=== PATIENT | female | born 1940 | race Caucasian/White ===

== ENCOUNTER 2019-12-06 13:08 | Emergency (ER) | payer MEDICARE, SELFPAY ==
[2019-12-06 13:14] VITALS: BP 189/102; PULSE 74; RESP 16; TEMP 36.9; O2SAT 94; BMI 32.2
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
[2019-12-06] MEDS: fentaNYL 100 MCG/2 ML Ampul 50 MCG IM (13:53)
[2019-12-06] MEDS: Ondansetron ODT 4 MG Tablet PO (13:53)
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
[2019-12-06 15:58] VITALS: BP 176/81; PULSE 68; RESP 16; O2SAT 97
== END 2019-12-06 16:00 | disposition home or self-care (01) ==
PROVIDERS: Emergency Provider Emergency Medicine; PCP Internal Medicine
DX: S20.219A Contusion of unspecified front wall of thorax, initial encounter (principal); V89.2XXA Person injured in unspecified motor-vehicle accident, traffic, initial encounter; Y93.9 Activity, unspecified; Y92.9 Unspecified place or not applicable; R51 Headache; J98.4 Other disorders of lung
CPT/HCPCS: 70450; 71046; 96372; 99284

== ENCOUNTER 2021-07-30 16:04 | Emergency (ER) | payer MEDICARE, SELFPAY ==
[2021-07-30 16:06] VITALS: BP 190/70; PULSE 59; RESP 16; TEMP 36.7; O2SAT 98; BMI 30.2
[2021-07-30 16:35] LABS: Basophil# 0.02 X10^3/uL; Basophil% 0.4 % (0-1); Eosinophil# 0.27 X10^3/uL; Hemoglobin 10.3 g/dL (12.0-15.0); Lymphocyte % 29.6 % (19-41); Mean Corp Hgb Conc 31.2 g/dL (32-36); Mean Corpuscular Hgb 28.1 pg (27.0-32.0); Mean Corpuscular Volume 90.2 fL (81-99); Mean Platelet Vol. 8.9 fl (6.2-12.0); Monocyte# 0.46 X10^3/uL; Monocyte% 8.5 % (0-10); NRBC Flagged by Analyzer 0 % (0-5); Neutrophil # 3.03 X10^3/uL (2.7-7.7); Neutrophil % 56.1 % (47-70); Platelet Count 260 K/mm3 (150-450); RBC Distribution Width CV 17.2 % (11.6-14.6); RBC Distribution Width SD 56.9 fl (35.1-43.9); Red Blood Count 3.66 M/mm3 (4.2-5.4); White Blood Count 5.4 K/mm3 (4.4-11.0)
[2021-07-30 16:48] LABS: ALB/GLOB Ratio 0.8 RATIO (0.9-2.4); AST(SGOT) 22 U/L (15-37); Alanine Aminotransfer ALT/SGPT 24 U/L (13-56); Albumin, Serum 3.6 g/dL (3.2-5.0); Alkaline Phosphatase 57 U/L (45-117); Anion Gap 8 (5-15); BUN 17 mg/dL (7-18); BUN/Creat Ratio 13.6 RATIO (10-20); Calcium,Total 9.4 mg/dL (8.5-10.1); Chloride 111 mmol/L (98-107); Creatinine, Serum 1.25 mg/dL (0.55-1.02); EST Glomerular Filtration Rate 44 mL/min (>60); Est Glom Filt Rate - Afr Amer 53 mL/min (>60); Globulin 4.6 g/dL (2.2-4.2); Glucose 108 mg/dL (74-106); Potassium 4.1 mmol/L (3.5-5.1); Protein, Total 8.2 g/dL (6.4-8.2); Sodium Level 143 mmol/L (136-145)
--- NOTE | 2021-07-30 18:00 | RAD_ITS ---
STUDY: X-RAY CHEST REASON FOR EXAM: Female, 81 years old. asthma TECHNIQUE: AP portable COMPARISON: 12/06/2019. FINDINGS: There is mild interstitial thickening in both lower lobes.. There is no demonstrated pleural abnormality. Normal size heart. Normal mediastinum and cassandra. Normal visualized pulmonary arteries. Mildly calcified aortic arch and descending thoracic aorta. Dorsal spine demonstrates degenerative change. Normal visualized ribs, clavicles, and shoulders. There is no demonstrated abnormality of the visualized soft tissue structures of the upper abdomen. No significant change since prior exam RAD/Chest 1 View IMPRESSION: Mild chronic interstitial changes. No acute cardiopulmonary pathology Electronically Signed: Vinicio Atkinson MD at 18:31 EDT , Service support ,
[2021-07-30 18:39] VITALS: O2SAT 98
--- NOTE | 2021-07-30 18:43 | CT_ITS ---
STUDY: CT BRAIN WITHOUT CONTRAST REASON FOR EXAM: Female, 81 years old. vertigo RADIATION DOSAGE (If Supplied By Facility): CTDIvol = ( 44.99 ) mGy, DLP = ( 779.24 ) mGycm TECHNIQUE: Transaxial CT imaging of the brain was performed without administration of intravenous contrast material. Individualized dose optimization techniques were used for this CT. COMPARISON: 12/06/2019. FINDINGS: Normal soft tissue structures. Normal calvarium. Calcific plaquing of the cavernous carotids bilaterally and the right vertebral artery. Mild atrophy and moderate periventricular white matter ischemic changes.. Normal basal ganglia and thalami. Normal brainstem. Normal cerebellum. There is no intracranial hemorrhage. There are no findings of an acute ischemic infarction. Postsurgical changes of the orbits. Complex expansile mucosal lesion in the right maxillary sinus of uncertain etiology but stable since previous study.. CT/Brain/Head without Contrast IMPRESSION: Atrophy and moderate periventricular white matter ischemic changes. No evidence for acute bleed. If concern for acute infarct MRI recommended. Electronically Signed: Vinicio Atkinson MD at 19:26 EDT , Service support ,
[2021-07-30 18:45] VITALS: BP 197/69; PULSE 60; RESP 15; O2SAT 99
--- NOTE | 2021-07-30 18:51 | EDS_ITS ---
HPI History of Present Illness Chief Complaint: Asthma Narrative Narrative: Chief complaints as asthma. Patient has no dyspnea or asthma. Her complaint is dizziness. She was at her doctor's office, she was laying down and had a sense of spinning of the room associated with nausea, it was quite intense and lasted about half an hour. No vision changes, she does not feel off balance currently, she has no headache she has no fever or chills, she has no weakness or paresthesias. [facility] Medical History (Updated 07/30/21 @ 20:[address] Toribio Wadsworth MD) Asthma Hypertension Home Medications Omeprazole [Prilosec] 40 mg PO DAILY 04/22/14 [History Last Taken 06/13/14] Pyridoxine Hcl [Vitamin B-6] 100 mg PO BID 04/22/14 [History Last Taken 06/13/14] ascorbic acid (vitamin C) [Vitamin C] 1,000 mg PO DAILY@0800 04/22/14 [History Last Taken Unknown] azelastine 2 spray NASAL BID 04/22/14 [History Last Taken 05/21/14] budesonide-formoterol [Symbicort] 2 puff INHALATION BID 04/22/14 [History Last Taken 06/11/14] cyanocobalamin (vitamin B-12) 1,000 mcg PO DAILY 04/22/14 [History Last Taken 06/13/14] cyclobenzaprine 10 mg PO QHS PRN PRN 04/22/14 [History Last Taken 06/13/14] folic acid 0.8 mg PO BIDCM 04/22/14 [History Last Taken 06/13/14] hydrocortisone 1 applic TOPICAL BID PRN 04/22/14 [History Last Taken Unknown] levalbuterol HCl [Xopenex Concentrate] 1.25 mg IH Q4H PRN PRN 04/22/14 [History Last Taken Unknown] levothyroxine 50 mcg PO DAILY 04/22/14 [History Last Taken 06/13/14] lorazepam 0.5 mg PO BID PRN 04/22/14 [History Last Taken 06/13/14] metformin 500 mg PO BIDCM 04/22/14 [History Last Taken 06/13/14] montelukast 10 mg PO QHS 04/22/14 [History Last Taken 06/13/14] simvastatin [Zocor] 5 mg PO QHS 04/22/14 [History Last Taken 06/12/14] travoprost [Travatan Z] 1 drp EACH EYE QHS 04/22/14 [History Last Taken 06/12/14] zolpidem 5 mg PO QHS PRN PRN 04/22/14 [History Last Taken 06/12/14] benzonatate 100 mg PO TID PRN PRN 06/14/14 [History Last Taken 05/21/14] ipratropium bromide 0.25 mg INHALATION TID PRN 06/14/14 [History Last Taken 06/12/14] levalbuterol tartrate [Xopenex HFA] 2 puff INHALATION Q4H PRN 06/14/14 [History Last Taken 06/07/14] iron, carbonyl [Feosol] 45 mg PO DAILYCM #30 capsule 06/15/14 [Rx Last Taken Unknown] duloxetine 60 mg PO DAILY 07/30/21 [History Last Taken Unknown] meclizine 25 mg PO BID #10 tab 07/30/21 [Rx Last Taken Unknown] meloxicam 15 mg PO DAILY 07/30/21 [History Last Taken Unknown] Allergy/AdvReac Type Severity Reaction Status Date / Time bacitracin Allergy Rash Verified 12/06/19 13:19 [From Neosporin ([id number])] bacitracin zinc Allergy Rash Verified 12/06/19 13:19 [From Neosporin ([id number])] diclofenac [Diclofenac] Allergy Unknown Verified 12/06/19 13:19 dicyclomine Allergy Unknown Verified 12/06/19 13:19 gabapentin Allergy Unknown Verified 12/06/19 13:19 hyoscyamine sulfate Allergy Unknown Verified 12/06/19 13:19 [From Levbid] metronidazole [From Flagyl] Allergy Unknown Verified 12/06/19 13:19 neomycin sulfate Allergy Rash Verified 12/06/19 13:19 [From Neosporin ([id number])] oxaprozin [From Daypro] Allergy Itching Verified 12/06/19 13:19 polymyxin B Allergy Rash Verified 12/06/19 13:19 [From Neosporin ([id number])] polymyxin B sulfate Allergy Rash Verified 12/06/19 13:19 [From Polysporin] propoxyphene HCl Allergy Unknown Verified 12/06/19 13:19 [From Darvon] atorvastatin calcium AdvReac muscle Verified 12/06/19 13:19 [From Lipitor] aches shellfish derived AdvReac vomitting Verified 12/06/19 13:19 Social History Smoking Status: Never smoker ROS ROS ED ROS Narrative Past medical history: Reviewed, includes type 2 diabetes, hyperlipidemia, hypothyroidism, asthma Medications: Reviewed Social history: Noncontributory Review of systems: All systems negative except as indicated General: No fever Eyes: No visual changes ENT: No upper airway congestion, normal voice Neck: No neck pain Cardiovascular: No chest pain Respiratory: No shortness of breath or cough Gastrointestinal: No abdominal pain, nausea vomiting or diarrhea Genitourinary: No dysuria Musculoskeletal: Denies myalgias no difficulty with ambulation Skin: No rash Neurological: Vertigo as in HPI. No memory loss, confusion or any focal weakness. No paresthesias Psych: No recent behavioral changes Hematologic: No easy bleeding or easy bruising EXAM Physical Exam Narrative Exam Narrative: Physical exam General: Well nourished, Well developed, No Acute Distress. She is quite comfortable in bed Head: Normocephalic, Atraumatic Eyes: Conjunctiva not pale. No nystagmus ENT: Moist mucous membranes Neck: Supple, Nontender, No lymphadenopathy Cardiovascular: Regular rate, Regular rhythm Respiratory: No distress, CTA bilaterally Abdomen: Soft, Nontender, Nondistended Back: Nontender, Normal Inspection. Negative for: CVA tenderness Extremities: Nontender, No edema Skin: Normal color, No rash Neurological: Alert, Normal Strength, Normal Sensation. She has normal cerebellar and normal Romberg. Normal gait. She has rightward saccade on exam. Psychological: Normal affect Const Vital Signs: 07/30/21 16:06 07/30/21 18:39 07/30/21 18:45 Temperature 98.1 F Temperature Source Oral Pulse Rate 59 L 60 Respiratory Rate 16 15 Respiratory Effort Normal Non-Labored Respiratory Depth Normal Respiratory Pattern Normal Blood Pressure 190/70 H 197/69 H Blood Pressure Mean 110 111 Pulse Ox 98 99 Oxygen Delivery Method Room Air Room Air Room Air MDM MDM MDM Narrative Medical decision making narrative: Patient has a normal ED work-up, her signs and symptoms point towards a peripheral vertigo. I will discharge her with follow-up from ENT and [facility]. Lab Data Labs: Laboratory Results - last 24 hr 07/30/21 07/30/21 16:25 16:25 WBC 5.4 RBC 3.66 L Hgb 10.3 L Hct 33.0 L MCV 90.2 MCH 28.1 MCHC 31.2 L RDW Std Deviation 56.9 H RDW Coeff of Naina 17.2 H Plt Count 260 MPV 8.9 Immature Gran % (Auto) 0.400 Neut % (Auto) 56.1 Lymph % (Auto) 29.6 [place] % (Auto) 8.5 Eos % (Auto) 5.0 Baso % (Auto) 0.4 Absolute Neuts (auto) 3.0 Absolute Lymphs (auto) 1.60 Nucleated RBC % 0 Sodium 143 Potassium 4.1 Chloride 111 H Carbon Dioxide 24.0 Anion Gap 8 BUN 17 Creatinine 1.25 H Estim Creat Clear Calc 39.20 Est GFR (MDRD) Af Amer 53 L Est GFR (MDRD) Non-Af 44 L BUN/Creatinine Ratio 13.6 Glucose 108 H Calcium 9.4 Total Bilirubin 0.30 AST 22 ALT 24 Alkaline Phosphatase 57 Total Protein 8.2 Albumin 3.6 Globulin 4.6 H Albumin/Globulin Ratio 0.8 L Radiography Diagnostic Testing: Radiology Impression Chest X-Ray 07/30/21 18:00 IMPRESSION: Mild chronic interstitial changes. No acute cardiopulmonary pathology Electronically Signed: Vinicio Atkinson MD at 18:31 EDT , Service support , Brain CT 07/30/21 18:43 IMPRESSION: Atrophy and moderate periventricular white matter ischemic changes. No evidence for acute bleed. If concern for acute infarct MRI recommended. Electronically Signed: Vinicio Atkinson MD at 19:26 EDT , Service support , Discharge Plan Triage Chief Complaint: Asthma ED Provider: Toribio Wadsworth Dx/Rx/DC Orders Clinical Impression: Vertigo Instructions: ED Vertigo, Unspecified Prescriptions: New meclizine 25 mg tablet 25 mg PO BID Qty: 10 RF: 0 No Action lorazepam 0.5 MG tablet 0.5 mg PO BID PRN (Reason: Anxiety) RF: 0 cyclobenzaprine 10 MG tablet 10 mg PO QHS PRN PRN (Reason: Muscle Spasm) RF: 0 metformin 500 MG tablet 500 mg PO BIDCM RF: 0 travoprost [Travatan Z] 1 DROP bottle 1 drp Each Eye QHS RF: 0 ascorbic acid (vitamin C) [Vitamin C] 500 MG tablet 1,000 mg PO DAILY@0800 RF: 0 simvastatin [Zocor] 5 MG tablet 5 mg PO QHS RF: 0 levothyroxine 50 MCG tablet 50 mcg PO DAILY RF: 0 cyanocobalamin (vitamin B-12) 1,000 MCG/ML solution 1,000 mcg PO DAILY RF: 0 hydrocortisone 1 APPLIC cream 1 applic topical BID PRN (Reason: Itching) RF: 0 montelukast 10 MG tablet 10 mg PO QHS RF: 0 zolpidem 5 MG tablet 5 mg PO QHS PRN PRN (Reason: Sleep) RF: 0 azelastine 1 SPRAY aerosol,spray 2 spray NASAL BID RF: 0 folic acid 0.8 MG tablet 0.8 mg PO BIDCM RF: 0 levalbuterol HCl [Xopenex Concentrate] 1.25 MG/0.5 ML solution for nebulization 1.25 mg IH Q4H PRN PRN (Reason: Shortness Of Breath) RF: 0 budesonide-formoterol [Symbicort] 1 INHALER inhaler 2 puff inhalation BID RF: 0 Omeprazole [Prilosec] 40 MG capsule 40 mg PO DAILY RF: 0 Pyridoxine Hcl [Vitamin B-6] 100 MG tablet 100 mg PO BID RF: 0 benzonatate 100 MG capsule 100 mg PO TID PRN PRN (Reason: Cough) RF: 0 ipratropium bromide 0.5 MG/2.5 ML solution 0.25 mg inhalation TID PRN (Reason: Wheezing) RF: 0 levalbuterol tartrate [Xopenex HFA] 15 GM HFA aerosol inhaler 2 puff inhalation Q4H PRN (Reason: Shortness Of Breath) RF: 0 iron, carbonyl [Feosol] 45 MG capsule 45 mg PO DAILYCM Qty: 30 RF: 3 meloxicam 15 mg tablet 15 mg PO DAILY RF: 0 duloxetine 60 mg capsule,delayed release(DR/EC) 60 mg PO DAILY RF: 0 Primary Care Provider: Michael Hobson Referrals: Darwin Altman MD [STAFF PHYSICIAN] - 2 Days Michael Hobson MD [Primary Care Provider] -
[2021-07-30 20:26] VITALS: BP 168/75; PULSE 67; RESP 18; O2SAT 97
== END 2021-07-30 20:27 | disposition home or self-care (01) ==
PROVIDERS: Emergency Provider Emergency Medicine; PCP Internal Medicine
DX: R42 Dizziness and giddiness (principal); I10 Essential (primary) hypertension; E03.9 Hypothyroidism, unspecified; E11.9 Type 2 diabetes mellitus without complications; E78.5 Hyperlipidemia, unspecified; J45.909 Unspecified asthma, uncomplicated; Z79.84 Long term (current) use of oral hypoglycemic drugs; Z79.899 Other long term (current) drug therapy
CPT/HCPCS: 70450; 71045; 80053; 85025; 99285; A4216

== ENCOUNTER → 2021-09-19 14:02 | Outpatient (CLI) | payer MEDICARE, SELFPAY ==
--- NOTE | 2021-09-19 14:24 | VDLE_ITS ---
Reason For Study: EDEMA RIGHT LEFT GSV is normal. GSV is normal. CFV is compressible, spontaneous, phasic, CFV is compressible, spontaneous, phasic, competent and demonstrates normal competent, and demonstrates normal augmentation. augmentation. FV is compressible, spontaneous, phasic, FV is compressible, spontaneous, phasic, competent and demonstrates normal competent and demonstrates normal augmentation. augmentation. POP V is compressible, spontaneous, phasic, POP V is compressible, spontaneous, phasic, competent and demonstrates normal competent and demonstrates normal augmentation. augmentation. T/P Trunk is compressible. T/P Trunk is compressible. RT PerV is compressible. PTV is compressible. PTV is dilated and noncompressible with mixed LT PerV is compressible. echolucency C/W acute on chronic DVT. Procedure Exam performed in department. A preliminary report was called and/or faxed to Dr. Sofia's RN @ [phone] @ 3 pm. VL/Venous Duplex US - Jez Extrem Interpretation Summary Acute and chronic deep vein thrombosis are noted in the right posterior tibial vein. The remainder of the right lower extremity deep venous system is patent and compressible. Patsy p veins of the left lower extremity are patent and compressible segmentally. There is no evidence o f left lower extremity deep vein thrombosis. Valvular competence appears intact within the p roximal deep venous systems bilaterally. The great saphenous veins appear bilaterally patent and co mpressible segmentally. Ordering Physician: Jose Sofia Referring Physician: Jose Sofia Performed By: Fidelina Monsalve, CAMMIE, RVT
== END ==
PROVIDERS: PCP Internal Medicine; Referring Provider Family Medicine; Visit Provider Family Medicine
DX: R60.0 Localized edema (principal)
CPT/HCPCS: 93970

== ENCOUNTER 2021-10-22 13:13 | Inpatient (IN) | payer MEDICARE, SELFPAY ==
[2021-10-22] VITALS (11 sets, daily range): BP systolic 107–147; BP diastolic 37–60; PULSE 50–61; RESP 12–18; TEMP 36–37.3; O2SAT 94–100; BMI 29.0; BMI 30.3
--- NOTE | 2021-10-22 14:02 | EKG12_ITS ---
Test Reason : ABN LABS Blood Pressure : / mmHG Vent. Rate : 055 BPM Atrial Rate : 055 BPM P-R Int : 150 ms QRS Dur : 088 ms QT Int : 408 ms P-R-T Axes : 033 026 079 degrees QTc Int : 390 ms Sinus bradycardia Nonspecific ST abnormality Abnormal ECG Confirmed by STEVEN MARX, MARILU ([id number]), book or script editor MADELIN FROST ([id number]) on 10/24/2021 1:26:13 PM Referred By: YONATAN Confirmed By:MARILU HARRIS MD
[2021-10-22 14:13] LABS: Absolute Neutrophil Count 5.5 X10^3/uL (2.0-7.7); Basophil# 0.02 X10^3/uL; Basophil% 0.3 % (0-1); Eosinophil# 0.09 X10^3/uL; Eosinophils% 1.2 % (0-5); Hematocrit 23.5 % (37-47); Hemoglobin 7.1 g/dL (12.0-15.0); Lymphocyte % 20.7 % (19-41); Mean Corp Hgb Conc 30.2 g/dL (32-36); Mean Corpuscular Hgb 26.6 pg (27.0-32.0); Mean Platelet Vol. 9.4 fl (6.2-12.0); Monocyte# 0.46 X10^3/uL; Monocyte% 5.9 % (0-10); NRBC Flagged by Analyzer 0 % (0-5); Neutrophil # 5.54 X10^3/uL (2.7-7.7); Neutrophil % 71.5 % (47-70); Platelet Count 350 K/mm3 (150-450); RBC Distribution Width SD 54.3 fl (35.1-43.9); Red Blood Count 2.67 M/mm3 (4.2-5.4); White Blood Count 7.7 K/mm3 (4.4-11.0)
[2021-10-22 14:23] LABS: Anion Gap 10 (5-15); BUN 44 mg/dL (7-18); BUN/Creat Ratio 27.3 RATIO (10-20); Calcium,Total 10.1 mg/dL (8.5-10.1); Chloride 111 mmol/L (98-107); Creatinine, Serum 1.61 mg/dL (0.55-1.02); EST Glomerular Filtration Rate 33 mL/min (>60); Est Glom Filt Rate - Afr Amer 40 mL/min (>60); Estimated Creatinine Clearance 29.22 ml/min; Glucose 123 mg/dL (74-106); Sodium Level 144 mmol/L (136-145)
--- NOTE | 2021-10-22 14:26 | EX.ED.DYSGE1 ---
HPI History of Present Illness Chief Complaint: Abn Labs Detail of Chief Complaint: Black stool, Hemoccult positive stool and 2 g drop in hemoglobin Informant: patient and family Onset/Context/Timing Onset: - (Blood work on Wednesday revealed a greater than 2 g drop in hemoglobin compared to 2 weeks ago.) Context: - (Unknown) Timing: - (Unknown) Quality: GI bleed on Eliquis Location: GI bleed, history of gastric ulcer Current Severity: Mild Maximum Severity: Mild Worsened by: Anticoagulant and patient is taken ibuprofen/Aleve in the past 1 to 2 weeks Relieved by: Nothing Associated Symptoms Associated Symptoms: Dyspnea on exertion and lightheadedness Narrative Narrative: Patient is 81-year-old woman with history of type 2 diabetes, hyperlipidemia, hypothyroidism, asthma, gastric/duodenal ulcer who presents because of 2 g drop in her hemoglobin over the past 2 weeks. She went to see her physician on Wednesday. Hemoccult was positive for blood. And hemogram revealed a 2 g drop. She states she took her dose of Eliquis this morning. She denies headache, runny nose that is new, congestion or postnasal drainage. Denies sore throat. She denies neck pain. She denies chest pain, dyspnea at rest. She does have dyspnea on exertion. She states she has a chronic cough due to her asthma. The cough is nonproductive. She denies abdominal pain. She denies nausea, vomiting diarrhea. She states she has black-colored stool. She has not taken Pepto-Bismol or Kaopectate in the last 1 to 2 weeks. Family member commented that she appears paler than normal. She denies bleeding of her gums. She denies blood in her urine. She denies bruising easily. She denies history of diverticulosis or diverticulitis. Prior similar symptoms: Yes Recent Illness/Hospitalization: No PFSH PFSH Medical History Anxiety Arthritis Asthma COPD (chronic obstructive pulmonary disease) Diabetes DVT (deep venous thrombosis) Former smoker Hypertension Skin cancer Home Medications azelastine 2 spray NASAL BID 04/22/14 [History Last Taken 05/21/14] budesonide-formoterol [Symbicort] 2 puff INHALATION BID 04/22/14 [History Last Taken 10/19/21] hydrocortisone 1 applic TOPICAL BID PRN 04/22/14 [History Last Taken Unknown] levalbuterol HCl [Xopenex Concentrate] 1.25 mg IH Q4H PRN PRN 04/22/14 [History Last Taken 1 Week Ago ~10/15/21] levothyroxine 50 mcg PO DAILY 04/22/14 [History Last Taken 10/22/21] lorazepam 0.5 mg PO BID PRN 04/22/14 [History Last Taken 10/22/21] metformin 500 mg PO BIDCM 04/22/14 [History Last Taken 10/22/21] montelukast 10 mg PO QHS 04/22/14 [History Last Taken 06/13/14] omeprazole 40 mg PO DAILY #0 capsule 04/22/14 [History Last Taken 10/22/21] travoprost [Travatan Z] 1 drp EACH EYE QHS 04/22/14 [History Last Taken 10/20/21] benzonatate 100 mg PO TID PRN PRN 06/14/14 [History Last Taken 05/21/14] ipratropium bromide 0.25 mg INHALATION TID PRN 06/14/14 [History Last Taken 1 Week Ago ~10/15/21] levalbuterol tartrate [Xopenex HFA] 2 puff INHALATION Q4H PRN 06/14/14 [History Last Taken 10/21/21] duloxetine 60 mg PO DAILY 07/30/21 [History Last Taken 10/22/21] meloxicam 15 mg PO DAILY 07/30/21 [History Last Taken 10/22/21] apixaban [Eliquis DVT-PE Treat 30D Start] 5 mg PO DAILY 10/22/21 [History Last Taken 10/22/21] pravastatin 20 mg PO QHS 10/22/21 [History Last Taken 10/21/21] trazodone 100 mg PO QHS 10/22/21 [History Last Taken 10/21/21] Allergy/AdvReac Type Severity Reaction Status Date / Time bacitracin Allergy Rash Verified 10/22/21 13:14 [From Neosporin ([id number])] bacitracin zinc Allergy Rash Verified 10/22/21 13:14 [From Neosporin ([id number])] diclofenac [Diclofenac] Allergy Unknown Verified 10/22/21 13:14 dicyclomine Allergy Unknown Verified 10/22/21 13:14 gabapentin Allergy Unknown Verified 10/22/21 13:14 hyoscyamine sulfate Allergy Unknown Verified 10/22/21 13:14 [From Levbid] metronidazole [From Flagyl] Allergy Unknown Verified 10/22/21 13:14 neomycin sulfate Allergy Rash Verified 10/22/21 13:14 [From Neosporin ([id number])] oxaprozin [From Daypro] Allergy Itching Verified 10/22/21 13:14 polymyxin B Allergy Rash Verified 10/22/21 13:14 [From Neosporin ([id number])] polymyxin B sulfate Allergy Rash Verified 10/22/21 13:14 [From Polysporin] propoxyphene HCl Allergy Unknown Verified 10/22/21 13:14 [From Darvon] atorvastatin calcium AdvReac muscle Verified 10/22/21 13:14 [From Lipitor] aches shellfish derived AdvReac vomitting Verified 10/22/21 13:14 Surgical History H/O: hysterectomy Social History (Updated 10/22/21 @ 14:[address] Nitin Page MD) household members: none Smoking Status: Former smoker substance use type: does not use ROS ROS ED Constitutional Constitutional ED: Denies chills, fever(s), subjective, sweats or weight loss Eyes Eyes: Denies blurry vision, change in vision or diplopia ENT ENT ED: Denies ear pain, rhinorrhea or sore throat Cardiovascular Cardiovascular: Denies chest pain, orthopnea, palpitations, paroxysmal nocturnal dyspnea or racing heartbeat Respiratory/Chest Respiratory/Chest: Reports cough and dyspnea on exertion; Denies dyspnea, orthopnea, paroxysmal nocturnal dyspnea or sputum Gastrointestinal Gastrointestinal: Reports melena; Denies abdominal pain, diarrhea, nausea or vomiting Genitourinary Genitourinary ED: Denies dysuria, hematuria or urinary frequency Musculoskeletal Musculoskeletal: Denies arthralgias, myalgias or neck pain Integumentary Denies Abrasions or rash Neurologic Neurologic: Denies headache(s) or weakness Endocrine Endocrinology: Denies polydipsia, polyphagia or polyuria Hematologic/Lymphatic Hematologic/Lymphatic: Reports anemia; Denies easy bleeding or easy bruising EXAM Physical Exam Const Vital Signs: 10/22/21 13:15 10/22/21 13:36 10/22/21 15:13 Temperature 96.8 F L Temperature Source Temporal Pulse Rate 59 L 57 L Respiratory Rate 16 16 12 Respiratory Effort Non-Labored Short of Breath Respiratory Pattern Normal Blood Pressure 122/39 H 117/46 L Blood Pressure Mean 66 69 Pulse Ox 94 96 Oxygen Delivery Method Room Air Room Air 10/22/21 17:00 Temperature Temperature Source Pulse Rate 58 L Respiratory Rate 18 Respiratory Effort Respiratory Pattern Blood Pressure 118/52 L Blood Pressure Mean 74 Pulse Ox 98 Oxygen Delivery Method Room Air Positive well nourished and well developed General Appearance ED: well developed, NAD, pallor and other Appears pale. There is no erythema creases of her palm. This would just hemoglobin less than 6. ; Negative for cyanotic or diaphoretic HEENT Reports TM's clear and moist mucous membranes; Denies dry mucous membranes Negative for trauma or tenderness Tympanic Membrane ED: Yes TM's clear Mouth ED: No dry mucous membranes Mouth: No dry mucous membranes Eyes PERRL and EOMs intact bilaterally General Eye ED: Yes pale conjunctiva; Negative for scleral icterus Neck no lymphadenopathy, supple and no JVD Chest Wall inspection of chest normal and palpation of chest normal Resp normal respiratory effort and clear to auscultation bilaterally Cardio regular rate and no murmurs; Negative for regular rhythm Rhythm: abnormal rhythm GI normal to inspection, nondistended, normoactive bowel sounds, non-tender and non-distended GI Narrative: Stool is very dark. It is not melanotic. Palpation: soft Back/Spine no CVA tenderness Cervical Spine: Negative for cervical spine tenderness Thoracic Spine / Upper Back: Negative for thoracic spinal tenderness or paraspinal muscle tenderness Extremity normal to inspection General Extremety ED: Negative for edema or tenderness General Extremity: Negative for edema Neuro oriented x3, CN's II-XII intact bilaterally and no sensory deficits noted Sensorium / Orientation: alert Psych mental status grossly normal Skin no rashes or lesions noted and no wounds General Skin Exam: pallor; Negative for jaundice MDM MDM MDM Narrative Medical decision making narrative: Patient on anticoagulant with heme positive stool a significant drop in hemoglobin. She was typed and screened appropriate blood work was ordered. She was made NPO. We will discuss case with hospitalist and job compositor once labs have returned. Patient is not tachycardic. Lab Data Attestation: I reviewed the patient's lab results. Lab results narrative: ALT is positive.Hemoglobin is 7.1. BUN to creatinine ratio is elevated at 27-1 which would suggest an acute GI bleed. Labs: Laboratory Results - last 24 hr 10/22/21 10/22/21 10/22/21 13:03 13:03 14:25 WBC 7.7 RBC 2.67 L Hgb 7.1 L Hct 23.5 L MCV 88.0 MCH 26.6 L MCHC 30.2 L RDW Std Deviation 54.3 H RDW Coeff of Naina 17.0 H Plt Count 350 MPV 9.4 Immature Gran % (Auto) 0.400 Neut % (Auto) 71.5 H Lymph % (Auto) 20.7 [place] % (Auto) 5.9 Eos % (Auto) 1.2 Baso % (Auto) 0.3 Absolute Neuts (auto) 5.5 Absolute Lymphs (auto) 1.60 Nucleated RBC % 0 Sodium 144 Potassium 5.0 Chloride 111 H Carbon Dioxide 23.0 Anion Gap 10 BUN 44 H Creatinine 1.61 H Estim Creat Clear Calc 29.22 Est GFR (MDRD) Af Amer 40 L Est GFR (MDRD) Non-Af 33 L BUN/Creatinine Ratio 27.3 H Glucose 123 H Calcium 10.1 Blood Type A POSITIVE Antibody Screen NEGATIVE EKG Initial EKG: Attestation: I personally reviewed and interpreted this EKG as follows: Interpretation: Sinus Bradycardia (Sinus bradycardia with a ventricular rate of 55. IL interval 250 ms. QS duration 88 ms. QT duration 408 ms. [place] is normal. Computer is reading ossific changes which in my opinion is due to artifact in lead III.) Discharge Plan Dx/Rx/DC Orders Clinical Impression: Acute GI bleeding, Type II diabetes mellitus, History of duodenal ulcer, Anticoagulant long-term use, Bradycardia, sinus, Anemia due to acute blood loss Disposition Disposition: [facility]
--- NOTE | 2021-10-22 17:35 | NURSING ---
DR BECK FOR DR HILLS
--- NOTE | 2021-10-22 17:52 | NURSING ---
101 OBS KIRAN GI BLEED, ANEMIA DUE TO BLOOD LOSS
--- NOTE | 2021-10-22 18:00 | HP.PCM.HOS_ITS ---
[facility] - General General Date of Admission: 10/22/21 HPI Narrative MARIA D SUTTON, is a 81 F who presents to the hospital with acute anemia. She was recently diagnosed with a right DVT in early September and was started on Eliquis by her PCP. For the last 2 weeks has been noticing dark stools, no gray blood. Initially he was just watching it as an outpatient but then on Wednesday when she was talking about having further episodes of dark stools and feeling tired and fatigued, he obtained a CBC and a stool specimen. It appears that she had continue to take her Eliquis throughout this entire episode as well as NSAIDs for arthritis until today when it was noticed that her hemoglobin had dropped from 10 which is around her baseline down to 7.5 on Wednesday. She was called by her PCP and told to present to the hospital. In the ER her hemoglobin was found to be 71. She is little bit tired but is not significantly short of breath lightheaded or dizzy. FOR[facility], LAT[facility] Medical History Anxiety Arthritis Asthma COPD (chronic obstructive pulmonary disease) Diabetes DVT (deep venous thrombosis) Former smoker Hypertension Skin cancer Home Medications azelastine 2 spray NASAL BID 04/22/14 [History Last Taken 05/21/14] budesonide-formoterol [Symbicort] 2 puff INHALATION BID 04/22/14 [History Last Taken 10/19/21] hydrocortisone 1 applic TOPICAL BID PRN 04/22/14 [History Last Taken Unknown] levalbuterol HCl [Xopenex Concentrate] 1.25 mg IH Q4H PRN PRN 04/22/14 [History Last Taken 1 Week Ago ~10/15/21] levothyroxine 50 mcg PO DAILY 04/22/14 [History Last Taken 10/22/21] lorazepam 0.5 mg PO BID PRN 04/22/14 [History Last Taken 10/22/21] metformin 500 mg PO BIDCM 04/22/14 [History Last Taken 10/22/21] montelukast 10 mg PO QHS 04/22/14 [History Last Taken 06/13/14] omeprazole 40 mg PO DAILY #0 capsule 04/22/14 [History Last Taken 10/22/21] travoprost [Travatan Z] 1 drp EACH EYE QHS 04/22/14 [History Last Taken 10/20/21] benzonatate 100 mg PO TID PRN PRN 06/14/14 [History Last Taken 05/21/14] ipratropium bromide 0.25 mg INHALATION TID PRN 06/14/14 [History Last Taken 1 Week Ago ~10/15/21] levalbuterol tartrate [Xopenex HFA] 2 puff INHALATION Q4H PRN 06/14/14 [History Last Taken 10/21/21] duloxetine 60 mg PO DAILY 07/30/21 [History Last Taken 10/22/21] meloxicam 15 mg PO DAILY 07/30/21 [History Last Taken 10/22/21] apixaban [Eliquis DVT-PE Treat 30D Start] 5 mg PO DAILY 10/22/21 [History Last Taken 10/22/21] pravastatin 20 mg PO QHS 10/22/21 [History Last Taken 10/21/21] trazodone 100 mg PO QHS 10/22/21 [History Last Taken 10/21/21] Allergy/AdvReac Type Severity Reaction Status Date / Time bacitracin Allergy Rash Verified 10/22/21 13:14 [From Neosporin ([id number])] bacitracin zinc Allergy Rash Verified 10/22/21 13:14 [From Neosporin ([id number])] diclofenac [Diclofenac] Allergy Unknown Verified 10/22/21 13:14 dicyclomine Allergy Unknown Verified 10/22/21 13:14 gabapentin Allergy Unknown Verified 10/22/21 13:14 hyoscyamine sulfate Allergy Unknown Verified 10/22/21 13:14 [From Levbid] metronidazole [From Flagyl] Allergy Unknown Verified 10/22/21 13:14 neomycin sulfate Allergy Rash Verified 10/22/21 13:14 [From Neosporin ([id number])] oxaprozin [From Daypro] Allergy Itching Verified 10/22/21 13:14 polymyxin B Allergy Rash Verified 10/22/21 13:14 [From Neosporin ([id number])] polymyxin B sulfate Allergy Rash Verified 10/22/21 13:14 [From Polysporin] propoxyphene HCl Allergy Unknown Verified 10/22/21 13:14 [From Darvon] atorvastatin calcium AdvReac muscle Verified 10/22/21 13:14 [From Lipitor] aches shellfish derived AdvReac vomitting Verified 10/22/21 13:14 Family History (Updated 10/22/21 @ 18:[address] Julio Lau MD) Other Colon cancer Hypertension Surgical History H/O: hysterectomy Social History (Updated 10/22/21 @ 14:[address] Nitin Page MD) household members: none Smoking Status: Former smoker substance use type: does not use ROS Constitutional Constitutional: Reports fatigue; Denies chills, fever(s) or malaise Eyes Eyes: Denies blurry vision ENT HEENT: Denies headache(s) or nasal discharge Cardiovascular Cardiovascular: Denies chest pain, dyspnea on exertion or syncope Respiratory/Chest Respiratory/Chest: Denies cough, shortness of breath at rest or shortness of breath with exertion Gastrointestinal Gastrointestinal: Reports melena; Denies constipation, diarrhea, nausea or vomiting Genitourinary Genitourinary: Denies dysuria Neurologic Neurologic: Denies focal weakness, numbness or tremor(s) Psychiatric Psychiatric: Denies anxiety or depression Vital Signs Vital Signs Vital Signs: 10/22/21 13:15 10/22/21 13:36 10/22/21 15:13 Temperature 96.8 F L Temperature Source Temporal Pulse Rate 59 L 57 L Respiratory Rate 16 16 12 Respiratory Effort Non-Labored Short of Breath Respiratory Pattern Normal Blood Pressure 122/39 H 117/46 L Blood Pressure Mean 66 69 Pulse Ox 94 96 Oxygen Delivery Method Room Air Room Air 10/22/21 17:00 Temperature Temperature Source Pulse Rate 58 L Respiratory Rate 18 Respiratory Effort Respiratory Pattern Blood Pressure 118/52 L Blood Pressure Mean 74 Pulse Ox 98 Oxygen Delivery Method Room Air Weight Weight: 144 lb Body Mass Index (BMI) 29.0 Physical Exam Const alert, oriented x3 and no apparent distress General Appearance: cooperative HEENT normocephalic and moist oral mucous membranes Eyes PERRL, EOMs intact bilaterally and conjunctivae normal Neck supple and no JVD Resp normal respiratory effort, no retractions, no use of accessory muscles and clear to auscultation bilaterally Auscultation: Negative for crackles, rales, rhonchi or wheezes Cardio regular rate, regular rhythm, S1 normal heart sound, S2 normal heart sound and no murmurs GI soft to palpation, non-tender and non-distended; Negative for hepatosplenomegaly Extremity no clubbing, cyanosis or edema Skin no rashes or lesions noted General Skin Exam: pallor Neuro no focal motor deficits and no sensory deficits noted Psych affect normal Appearance: appropriate Results Lab / Micro Data Result Diagrams: 10/22/21 13:03 10/22/21 13:03 Labs: Laboratory Results - last 24 hr 10/22/21 13:03: WBC 7.7, RBC 2.67 L, Hgb 7.1 L, Hct 23.5 L, MCV 88.0, MCH 26.6 L , MCHC 30.2 L, RDW Std Deviation 54.3 H, RDW Coeff of Naina 17.0 H, Plt Count 350, MPV 9.4, Immature Gran % (Auto) 0.400, Neut % (Auto) 71.5 H, Lymph % (Auto) 20.7, [place] % (Auto) 5.9, Eos % (Auto) 1.2, Baso % (Auto) 0.3, Absolute Neuts (auto) 5.5, Absolute Lymphs (auto) 1.60, Nucleated RBC % 0 10/22/21 13:03: Sodium 144, Potassium 5.0, Chloride 111 H, Carbon Dioxide 23.0, Anion Gap 10, BUN 44 H, Creatinine 1.61 H, Estim Creat Clear Calc 29.22, Est GFR (MDRD) Af Amer 40 L, Est GFR (MDRD) Non-Af 33 L, BUN/Creatinine Ratio 27.3 H, Glucose 123 H, Calcium 10.1 10/22/21 14:25: Blood Type A POSITIVE, Antibody Screen NEGATIVE Micro: Microbiology 10/22/21 16:08 Stool Stool Occult Blood (JULY) - Final Occult Blood Positive Assessment & Plan Assessment/Plan (1) Acute blood loss anemia: (2) Acute GI bleeding: PLAN: 1. Acute blood loss anemia secondary to acute GI bleed/DVT in 09/2021/GERD ?She does have a history of an upper GI bleed unfortunately has to be on Eliquis for a right DVT ?Baseline hemoglobin is around 10 she is currently 7.1 ?We will consult gastroenterology for evaluation and discontinue her Eliquis and her NSAIDs ?I did educate her on not using her NSAIDs and she will likely need to be evaluated for the ability to continue Eliquis versus potentially having a filter installed for her DVT. I would recommend outpatient hematology follow-up as well to see if the source of the clot can be determined ?Continue with twice daily PPI ?We will start her on clear liquid diet ?We will transfuse 1unit and recheck hemoglobin 2. Asthma/COPD from secondhand smoking ?Continue with her home inhalers ?No current exacerbation 3. Depression and anxiety ?Stable ?Continue and Ativan as needed 4. Hypothyroidism ?Stable ?Continue with 5. DM2 ?Hold metformin ?We will place on sliding scale insulin Accu-Cheks AC at bedtime 6. HLD ?Stable ?Continue with statin DVT: SCDs Charges/Coding Visit Charges Inpatient E&M: 70393 Init Hosp L3
--- NOTE | 2021-10-22 19:47 | PCS.PANDOC ---
PANDEMIC DOCUMENTATION INITIATED: Date: 06/30/2021 Time: 190
[2021-10-22] MEDS: Montelukast 10 MG Tablet PO (22:53)
[2021-10-22] MEDS: Pravastatin 20 MG Tablet PO (22:54)
[2021-10-22] MEDS: Latanoprost 0.005% 1 Bottle 1 DRP EACH EYE (22:54)
[2021-10-22] MEDS: MELATONIN 3 MG TABLET PO (22:59)
[2021-10-23] VITALS (12 sets, daily range): BP systolic 106–140; BP diastolic 37–92; PULSE 47–69; RESP 16–24; TEMP 36.4–37.1; O2SAT 92–100
[2021-10-23 05:30] LABS: Absolute Lymphocyte Count 1.54 X10^3/uL (0.83-4.51); Absolute Neutrophil Count 3.4 X10^3/uL (2.0-7.7); Basophil# 0.02 X10^3/uL; Basophil% 0.3 % (0-1); Eosinophil# 0.31 X10^3/uL; Eosinophils% 5.3 % (0-5); Hemoglobin 8.2 g/dL (12.0-15.0); Lymphocyte # 1.54 X10^3/ul (0.83-4.51); Lymphocyte % 26.5 % (19-41); Mean Corp Hgb Conc 31.5 g/dL (32-36); Mean Corpuscular Volume 88.7 fL (81-99); Mean Platelet Vol. 9.1 fl (6.2-12.0); Monocyte# 0.55 X10^3/uL; Monocyte% 9.5 % (0-10); NRBC Flagged by Analyzer 0 % (0-5); Neutrophil # 3.38 X10^3/uL (2.7-7.7); Neutrophil % 58.2 % (47-70); Platelet Count 259 K/mm3 (150-450); RBC Distribution Width CV 16.1 % (11.6-14.6); RBC Distribution Width SD 51.8 fl (35.1-43.9); Red Blood Count 2.93 M/mm3 (4.2-5.4); White Blood Count 5.8 K/mm3 (4.4-11.0)
[2021-10-23] MEDS: Levothyroxine 50 MCG Tablet PO (05:45)
[2021-10-23 06:19] LABS: Anion Gap 5 (5-15); BUN 38 mg/dL (7-18); BUN/Creat Ratio 27.9 RATIO (10-20); Calcium,Total 9.2 mg/dL (8.5-10.1); Chloride 115 mmol/L (98-107); Creatinine, Serum 1.36 mg/dL (0.55-1.02); EST Glomerular Filtration Rate 40 mL/min (>60); Est Glom Filt Rate - Afr Amer 48 mL/min (>60); Estimated Creatinine Clearance 36.11 ml/min; Glucose 108 mg/dL (74-106); Potassium 5.5 mmol/L (3.5-5.1); Sodium Level 141 mmol/L (136-145)
[2021-10-23] MEDS: DULoxetine Hcl 60 MG Capsule PO (08:35)
--- NOTE | 2021-10-23 10:45 | CASEMGMT ---
THANG MCGREGOR assessment: Face to Face with patient for initial transition planning/care coordination assessment. THANG MCGREGOR introduced self and role at [facility], pt voices understanding and consents to assessment. Pt is sitting up in chair in no distress on room air. Pt is A/Ox4 and answers all questions appropriately. Care providers, pharmacy, and demographics verified. Presentation: Pt sent in for low hemoglobin Admitting dx: GI bleed, anemia d/t blood loss PCP: Joce Specialists: damien Longoria Preferred Pharmacy: [facility] Insurance: [employer] [employer] Prescription Benefit: [employer] Living Will/HPOA: Pt does not have LW/HPOA but would like AD info and info provided at this time. LNOK: Eyad Magdaleno, son; Fidelina Magdaleno, [id number] Living Arrangements: Pt lives alone in mobile home with 5 steps in and states no concerns at home. Pt is independent with ADL's. Transportation: Pt states drives self and states no transportation concerns. DME/HHC: Pt has the following DME: cane(uses), w/c, walker, and tub bench. Pt states no need for any further DME. Pt states no hx of HHC or SNF. Pt states no concerns with going home at time of discharge. Pt is retired. Pt states does not smoke cigarettes or drink ETOH. Pt states no further concerns/needs. CM to follow for any further discharge planning/needs. Advised pt to ask for CM if any further questions/concerns/needs arise, voices understanding. Pt Goal: Home Plan: [place] THANG MCGREGOR
--- NOTE | 2021-10-23 15:40 | PN.HOSP_ITS ---
Subjective Subjective Follow-up on acute GI bleed: Patient seen and examined. Patient went EGD that showed esophageal varices, portal hypertensive gastropathy and gastritis Objective Data Objective Data Vital Signs: Vital Signs Temp Pulse Resp BP Pulse Ox 98.7 F 50 L 16 120/58 L 100 10/23/21 14:25 10/23/21 14:25 10/23/21 14:25 10/23/21 14:25 10/23/21 14:25 Oxygen Delivery Method Room Air Weight: 68.2 kg Body Mass Index (BMI) 30.3 Intake & Output: Intake and Output for Last 24 Hours 10/21/21 10/22/21 10/23/21 23:59 23:59 23:59 Intake Total 880 / 880 800 / 800 Balance 880 / 880 800 / 800 Lab / Micro Data Result Diagrams: 10/23/21 04:52 10/23/21 04:52 Labs: Laboratory Results - last 24 hr 10/22/21 14:25: Crossmatch See Detail 10/23/21 04:52: WBC 5.8, RBC 2.93 L, Hgb 8.2 L, Hct 26.0 L, MCV 88.7, MCH 28.0, MCHC 31.5 L, RDW Std Deviation 51.8 H, RDW Coeff of Naina 16.1 H, Plt Count 259, MPV 9.1, Immature Gran % (Auto) 0.200, Neut % (Auto) 58.2, Lymph % (Auto) 26.5, [place] % (Auto) 9.5, Eos % (Auto) 5.3 H, Baso % (Auto) 0.3, Absolute Neuts (auto) 3.4, Absolute Lymphs (auto) 1.54, Nucleated RBC % 0 10/23/21 04:52: Sodium 141, Potassium 5.5 H, Chloride 115 H, Carbon Dioxide 21.0, Anion Gap 5, BUN 38 H, Creatinine 1.36 H, Estim Creat Clear Calc 36.11, Est GFR (MDRD) Af Amer 48 L, Est GFR (MDRD) Non-Af 40 L, BUN/Creatinine Ratio 27.9 H, Glucose 108 H, Calcium 9.2 Micro: Microbiology 10/22/21 16:08 Stool Stool Occult Blood (JULY) - Final Occult Blood Positive Physical Exam Narrative Physical exam: General: Alert, Oriented x3, Cooperative, No apparent distress, Well developed HEENT: Atraumatic Oral: Moist Mucosa Neck: Supple Lungs: Clear to auscultation Cardiovascular: HS I+II, regular, no murmurs Abdomen: Bowel Sounds Present, Soft, Non Tender Extremities: No edema Assessment & Plan Assessment/Plan (1) GI bleed: (2) Type II diabetes mellitus: (3) Hyperlipidemia: (4) Acute blood loss anemia: (5) Acute GI bleeding: PLAN: 1. Acute blood loss anemia secondary to acute GI bleed History of Acute DVT in 09/2021 GI consulted; status post EGD that showed gastritis, portal hypertension, esophageal varices Continue on IV PPI 2. Type II DM, blood sugars stable, hold Metformin, continue with insulin sliding scale 3. Rest of her chronic medical conditions include anxiety/depression/hypothyroidism/hyperlipidemia remained stable Charges/Coding Visit Charges Inpatient E&M: 61740 Subs Hosp L2
--- NOTE | 2021-10-23 16:57 | OP.CCLET_ITS ---
07/22/2022 Michael Hobson [address] [place] [address] Re : Upper GI endoscopy procedure for Pattie Magdaleno Dear Dr. Hobson This procedure was performed on October. My impressions and recommendations are as follows: Impressions : - Grade I esophageal varices. - Portal hypertensive gastropathy. - Gastritis. - Normal third portion of the duodenum. - No specimens collected. Recommendations : - Use Protonix (pantoprazole) 40 mg PO BID for 8 weeks. - Resume regular diet today. - Return to my office in 2 weeks. - No aspirin, ibuprofen, naproxen, or other non-steroidal anti-inflammatory drugs for 4 days. -Ultrasound of the liver regarding possible cirrhosis My findings are described in the full procedure note, which is enclosed. If I can be of further assistance, please feel free to contact me at . Sincerely, Sinan Friend, 10/23/2021 4:56:33 PM This report has been signed electronically.
--- NOTE | 2021-10-23 16:57 | OP.EGD_ITS ---
Patient Name: Pattie Magdaleno Procedure Date: 10/23/2021 4:24 PM Date of : 1940 Age: 81 Procedure: Upper GI endoscopy Indications: Acute post hemorrhagic anemia Providers: Sinan Arellano DO Patient Profile: This is a 81 year old female. Refer to note in patient chart for documentation of history and physical. Patient has symptoms. Complications: No immediate complications. Procedure: Pre-Anesthesia Assessment: - Prior to the procedure, a History and Physical was performed, and patient medications and allergies were reviewed. The patient is competent. The risks and benefits of the procedure and the sedation options and risks were discussed with the patient. All questions were answered and informed consent was obtained. Patient identification and proposed procedure were verified by the physician in the pre-procedure area. Mental Status Examination: alert and oriented. Airway Examination: normal oropharyngeal airway and neck mobility. Respiratory Examination: clear to auscultation. CV Examination: normal. Prophylactic Antibiotics: The patient does not require prophylactic antibiotics. Prior Anticoagulants: The patient has taken no previous anticoagulant or antiplatelet agents. ASA Grade Assessment: II - A patient with mild systemic disease. After reviewing the risks and benefits, the patient was deemed in satisfactory condition to undergo the procedure. The anesthesia plan was to use moderate sedation / analgesia (conscious sedation). Immediately prior to administration of medications, the patient was re-assessed for adequacy to receive sedatives. The heart rate, respiratory rate, oxygen saturations, blood pressure, adequacy of pulmonary ventilation, and response to care were monitored throughout the procedure. The physical status of the patient was re-assessed after the procedure. After obtaining informed consent, the endoscope was passed under direct vision. Throughout the procedure, the patient's blood pressure, pulse, and oxygen saturations were monitored continuously. The gastroscope was introduced through the mouth, and advanced to the second part of duodenum. The upper GI endoscopy was accomplished without difficulty. The patient tolerated the procedure well. Moderate Sedation: Moderate (conscious) sedation was personally administered by an anesthesia professional. The following parameters were monitored: oxygen saturation, heart rate, blood pressure, and response to care. Total physician intraservice time was 15 minutes. Scope In: 4:41:29 PM Scope Out: 4:47:05 PM Total Procedure Duration Time 0 hours 5 minutes 36 seconds Findings: Grade I varices were found at the gastroesophageal junction. They were 5 mm in largest diameter. Also esophageal ring was seen in the mid to proximal esophagus. This was not dilated. Mild portal hypertensive gastropathy was found in the cardia. There was also a large sliding hiatal hernia seen. There was the presence of small telangiectasias that were seen in the hiatal hernia and throughout the stomach. Localized mild inflammation characterized by congestion (edema) and erythema was found in the prepyloric region of the stomach. The third portion of the duodenum was normal. Impression: - Grade I esophageal varices. - Portal hypertensive gastropathy. - Gastritis. - Normal third portion of the duodenum. - No specimens collected. Recommendation: - Use Protonix (pantoprazole) 40 mg PO BID for 8 weeks. - Resume regular diet today. - Return to my office in 2 weeks. - No aspirin, ibuprofen, naproxen, or other non-steroidal anti-inflammatory drugs for 4 days. -Ultrasound of the liver regarding possible cirrhosis Procedure Code(s): --- Professional --- 75050, Esophagogastroduodenoscopy, flexible, transoral; diagnostic, including collection of specimen(s) by brushing or washing, when performed (separate procedure) CPT copyright 2017 [employer]. All rights reserved. The codes documented in this report are preliminary and upon lending consultant review may be revised to meet current compliance requirements. Sinan Arellano DO 10/23/2021 4:56:33 PM This report has been signed electronically. Number of Addenda: 1 Note Initiated On: 10/23/2021 4:24 PM Addendum Number: 1 Addendum Date: 07/22/2022 7:06:13 AM MAC was used instead of moderate sedation for the patient. Sinan Arellano DO 07/22/2022 7:06:17 AM This report has been signed electronically.
--- NOTE | 2021-10-23 17:44 | US_ITS ---
STUDY: ABDOMINAL ULTRASOUND - RIGHT UPPER QUADRANT REASON FOR VISIT: Female, 81 years old. ABDOMEN PAIN cirrhosis, portal hypertension, DOPPLERS STUDY TECHNIQUE: Ultrasound evaluation of the right upper quadrant was performed with real-time and static pendleton-scale imaging. TECHNICAL QUALITY: Adequate. COMPARISON: None. FINDINGS: Liver: There is a heterogeneous echogenicity of the liver. The bile ducts are within normal limits. There is hepatic color flow. The direction of portal flow is hepatopetal. The liver is nodular in appearance. A focal mass is not identified. The finding is consistent for hepatic cirrhosis. Gallbladder: Normal distended gallbladder. The gallbladder wall measures 3 mm. There is a negative sonographic Daugherty''s sign. There is no pericholecystic fluid. There are no gallstones. Common Bile Duct (C.B.D.): The common bile duct measures ( in mm): 3 Pancreas: Normal size of the head, body of the pancreas. There is normal echogenicity of the pancreas. There is no demonstrated pancreatic mass or cyst. Right Kidney: Normal size of the right kidney. The right kidney measures 10.4 cm. . Normal renal cortex. Cyst measures 11 mm. There is no right hydronephrosis. Aorta: It is not visualized. There is too much overlying bowel gas. . US/Liver IMPRESSION: Hepatic cirrhosis. Simple cyst of the right kidney. No follow-up required. Electronically Signed: Chuck Walker MD at 21:13 EST , Service support ,
[2021-10-23] MEDS: Polyethylene Glycol 3350 BOWEL PREP PO (20:52)
[2021-10-23] MEDS: Bisacodyl 5 MG Tablet 20 MG PO (21:00)
[2021-10-23] MEDS: Montelukast 10 MG Tablet PO (21:04)
[2021-10-23] MEDS: Pravastatin 20 MG Tablet PO (21:04)
[2021-10-23] MEDS: Latanoprost 0.005% 1 Bottle 1 DRP EACH EYE (21:08)
[2021-10-23] MEDS: Albuterol 2.5 MG/3 ML VIAL.NEB. INHALATION (21:30)
[2021-10-23] MEDS: LORazepam 0.5 MG Tablet PO (22:00)
[2021-10-23 22:21] LABS: Bedside Glucose 130 mg/dL (70-110)
[2021-10-24] VITALS (8 sets, daily range): BP systolic 118–146; BP diastolic 46–64; PULSE 50–55; RESP 16–20; TEMP 36.4–37.3; O2SAT 95–100; BMI 30.3
[2021-10-24 05:07] LABS: Absolute Lymphocyte Count 1.98 X10^3/uL (0.83-4.51); Absolute Neutrophil Count 3.8 X10^3/uL (2.0-7.7); Basophil# 0.03 X10^3/uL; Basophil% 0.5 % (0-1); Eosinophil# 0.27 X10^3/uL; Eosinophils% 4.1 % (0-5); Lymphocyte # 1.98 X10^3/ul (0.83-4.51); Lymphocyte % 29.9 % (19-41); Mean Corpuscular Hgb 27.9 pg (27.0-32.0); Mean Corpuscular Volume 89.8 fL (81-99); Mean Platelet Vol. 8.6 fl (6.2-12.0); Monocyte# 0.53 X10^3/uL; NRBC Flagged by Analyzer 0 % (0-5); Neutrophil % 57.2 % (47-70); Platelet Count 302 K/mm3 (150-450); RBC Distribution Width CV 16.2 % (11.6-14.6); RBC Distribution Width SD 53.1 fl (35.1-43.9); Red Blood Count 3.23 M/mm3 (4.2-5.4); White Blood Count 6.6 K/mm3 (4.4-11.0)
[2021-10-24 05:21] LABS: International Normalized Ratio 1.1; Prothrombin Time (Protime)PT. 13.8 SECONDS (11.7-14.9)
[2021-10-24 05:22] LABS: Partial Thromboplast Time 31.4 Seconds (24.1-36.2)
--- NOTE | 2021-10-24 05:55 | EKG12_ITS ---
Test Reason : AM EKG Blood Pressure : / mmHG Vent. Rate : 053 BPM Atrial Rate : 053 BPM P-R Int : 152 ms QRS Dur : 094 ms QT Int : 430 ms P-R-T Axes : 062 034 071 degrees QTc Int : 403 ms Sinus bradycardia Otherwise normal ECG When compared with ECG of 22-OCT-2021 14:23, MANUAL COMPARISON REQUIRED, DATA IS UNCONFIRMED Confirmed by JORGE A MARX, NOAH ([id number]), script editor MADELIN FROST ([id number]) on 10/24/2021 11:46:13 AM Referred By: Confirmed By:NOAH JULES MD
[2021-10-24 05:58] LABS: ALB/GLOB Ratio 0.7 RATIO (0.9-2.4); AST(SGOT) 15 U/L (15-37); Alanine Aminotransfer ALT/SGPT 15 U/L (13-56); Albumin, Serum 2.9 g/dL (3.2-5.0); Alkaline Phosphatase 50 U/L (45-117); Anion Gap 6 (5-15); BUN 23 mg/dL (7-18); BUN/Creat Ratio 17.4 RATIO (10-20); Calcium,Total 9.2 mg/dL (8.5-10.1); Chloride 108 mmol/L (98-107); Creatinine, Serum 1.32 mg/dL (0.55-1.02); EST Glomerular Filtration Rate 41 mL/min (>60); Est Glom Filt Rate - Afr Amer 50 mL/min (>60); Estimated Creatinine Clearance 37.21 ml/min; Globulin 4.2 g/dL (2.2-4.2); Glucose 107 mg/dL (74-106); Magnesium 1.8 mg/dL (1.6-2.6); Phosphorus 3.9 mg/dL (2.5-4.9); Potassium 4.9 mmol/L (3.5-5.1); Protein, Total 7.1 g/dL (6.4-8.2); Sodium Level 139 mmol/L (136-145); Thyroid Stim Hormone (TSH) 3.85 uIU/mL (0.358-3.74)
[2021-10-24 06:50] LABS: Bedside Glucose 106 mg/dL (70-110)
[2021-10-24 07:02] LABS: Hemoglobin A1c 5.7 % (3.8-5.6)
[2021-10-24 11:55] LABS: Bedside Glucose 109 mg/dL (70-110)
--- NOTE | 2021-10-24 15:55 | SUR.PREOP ---
attempted to call daughter in law to give her an update- no answer at this time
[2021-10-24 16:45] LABS: Bedside Glucose 96 mg/dL (70-110)
--- NOTE | 2021-10-24 18:50 | OP.COLON_ITS ---
Patient Name: Pattie Magdaleno Procedure Date: 10/24/2021 5:43 PM Date of : 1940 Age: 81 Procedure: Colonoscopy Indications: Acute post hemorrhagic anemia, Iron deficiency anemia Providers: Sinan Arellano DO Medicines: See the Anesthesia note for documentation of the administered medications Patient Profile: This is a 81 year old female. Refer to note in patient chart for documentation of history and physical. Last Colonoscopy: date unknown. Complications: No immediate complications. Procedure: Pre-Anesthesia Assessment: - Prior to the procedure, a History and Physical was performed, and patient medications and allergies were reviewed. The patient is competent. The risks and benefits of the procedure and the sedation options and risks were discussed with the patient. All questions were answered and informed consent was obtained. Patient identification and proposed procedure were verified by the physician in the pre-procedure area. Mental Status Examination: alert and oriented. Airway Examination: normal oropharyngeal airway and neck mobility. Respiratory Examination: clear to auscultation. CV Examination: normal. Prophylactic Antibiotics: The patient does not require prophylactic antibiotics. Prior Anticoagulants: The patient has taken no previous anticoagulant or antiplatelet agents. After reviewing the risks and benefits, the patient was deemed in satisfactory condition to undergo the procedure. The anesthesia plan was to use moderate sedation / analgesia (conscious sedation). Immediately prior to administration of medications, the patient was re-assessed for adequacy to receive sedatives. The heart rate, respiratory rate, oxygen saturations, blood pressure, adequacy of pulmonary ventilation, and response to care were monitored throughout the procedure. The physical status of the patient was re-assessed after the procedure. After I obtained informed consent, the scope was passed under direct vision. Throughout the procedure, the patient's blood pressure, pulse, and oxygen saturations were monitored continuously. The Colonoscope was introduced through the anus and advanced to the cecum, identified by appendiceal orifice and ileocecal valve. The colonoscopy was performed without difficulty. The patient tolerated the procedure well. The quality of the bowel preparation was unsatisfactory. Moderate Sedation: Moderate (conscious) sedation was administered by the endoscopy nurse and supervised by the endoscopist. The following parameters were monitored: oxygen saturation, heart rate, blood pressure, and response to care. Total physician intraservice time was 15 minutes. Scope In: 6:16:50 PM Scope Withdrawal Time 0 hours 13 minutes 46 seconds Scope Out: 6:38:06 PM Total Procedure Duration Time 0 hours 21 minutes 16 seconds Findings: The perianal and digital rectal examinations were normal. Multiple large-mouthed diverticula were found in the recto-sigmoid colon, sigmoid colon, descending colon, splenic flexure and transverse colon. There was narrowing of the colon in association with the diverticular opening. Erythema was seen in association with the diverticular opening. Makayla-diverticular erythema was seen. There was evidence of an impacted diverticulum. There was no evidence of diverticular bleeding. A large amount of semi-liquid semi-solid solid stool was found in the rectum, in the recto-sigmoid colon, in the sigmoid colon, in the descending colon, at the splenic flexure, in the transverse colon, in the ascending colon and in the cecum, making visualization difficult. A 5 mm polyp was found in the sigmoid colon. The polyp was sessile. The polyp was removed with a hot snare. Resection and retrieval were complete. Verification of patient identification for the specimen was done. To prevent bleeding post-intervention, two hemostatic clips were successfully placed. There was no bleeding at the end of the procedure. Impression: - Preparation of the colon was unsatisfactory. - Severe diverticulosis in the recto-sigmoid colon, in the sigmoid colon, in the descending colon, at the splenic flexure and in the transverse colon. There was narrowing of the colon in association with the diverticular opening. Erythema was seen in association with the diverticular opening. Makayla-diverticular erythema was seen. There was evidence of an impacted diverticulum. There was no evidence of diverticular bleeding. - Stool in the rectum, in the recto-sigmoid colon, in the sigmoid colon, in the descending colon, at the splenic flexure, in the transverse colon, in the ascending colon and in the cecum. - One 5 mm polyp in the sigmoid colon, removed with a hot snare. Resected and retrieved. Clips were placed. Recommendation: - Repeat colonoscopy in 3 months because the bowel preparation was suboptimal. - Return to GI office in 2 weeks. - Continue present medications. Procedure Code(s): --- Professional --- 49782, Colonoscopy, flexible; with removal of tumor(s), polyp(s), or other lesion(s) by snare technique [id number], Moderate sedation services provided by the same physician or other qualified health manager career performing a gastrointestinal endoscopic service that sedation supports, requiring the presence of an independent trained observer to assist in the monitoring of the patient's level of consciousness and physiological status; initial 15 minutes of intra-service time; patient age 5 years or older (additional time may be reported with 83458, as appropriate) CPT copyright 2017 [employer]. All rights reserved. The codes documented in this report are preliminary and upon address change clerk review may be revised to meet current compliance requirements. Sinan Arellano DO 10/24/2021 6:49:58 PM This report has been signed electronically. Number of Addenda: 1 Note Initiated On: 10/24/2021 5:43 PM Addendum Number: 1 Addendum Date: 07/22/2022 7:06:45 AM MAC was used instead of moderate sedation for the patient. Sinan Arellano DO 07/22/2022 7:06:50 AM This report has been signed electronically.
--- NOTE | 2021-10-24 18:51 | OP.CCLET_ITS ---
07/22/2022 Michael Hobson [address] [place] [address] Re : Colonoscopy procedure for Pattie Magdaleno Dear Dr. Hobson This procedure was performed on Sunday, October 24, 2021. My impressions and recommendations are as follows: Impressions : - Preparation of the colon was unsatisfactory. - Severe diverticulosis in the recto-sigmoid colon, in the sigmoid colon, in the descending colon, at the splenic flexure and in the transverse colon. There was narrowing of the colon in association with the diverticular opening. Erythema was seen in association with the diverticular opening. Makayla-diverticular erythema was seen. There was evidence of an impacted diverticulum. There was no evidence of diverticular bleeding. - Stool in the rectum, in the recto-sigmoid colon, in the sigmoid colon, in the descending colon, at the splenic flexure, in the transverse colon, in the ascending colon and in the cecum. - One 5 mm polyp in the sigmoid colon, removed with a hot snare. Resected and retrieved. Clips were placed. Recommendations : - Repeat colonoscopy in 3 months because the bowel preparation was suboptimal. - Return to GI office in 2 weeks. - Continue present medications. My findings are described in the full procedure note, which is enclosed. If I can be of further assistance, please feel free to contact me at . Sincerely, Sinan Arellano, 10/24/2021 6:49:58 PM This report has been signed electronically.
[2021-10-24] MEDS: Montelukast 10 MG Tablet PO (20:51)
[2021-10-24] MEDS: Pravastatin 20 MG Tablet PO (20:51)
[2021-10-24] MEDS: Latanoprost 0.005% 1 Bottle 1 DRP EACH EYE (20:51)
[2021-10-24] MEDS: rifAXIMin 550 MG Tablet PO (20:53)
[2021-10-24 21:00] LABS: Bedside Glucose 89 mg/dL (70-110)
[2021-10-25 00:06] VITALS: BP 126/56; PULSE 58; RESP 14; TEMP 37.1; O2SAT 98
[2021-10-25] MEDS: Levothyroxine 50 MCG Tablet PO (06:44)
[2021-10-25] MEDS: 0.9% Saline Lock 10 ML Syringe IV ×2 (06:45→09:26)
[2021-10-25 06:46] VITALS: BP 147/58; PULSE 55; RESP 16; TEMP 36.9; O2SAT 98
[2021-10-25 06:55] LABS: Bedside Glucose 104 mg/dL (70-110)
--- NOTE | 2021-10-25 07:39 | PN.HOSP_ITS ---
Subjective Subjective Late entry note:Patient seen on Follow-up on acute GI bleed: Patient seen and examined. Patient went EGD on 10/23/21 that showed esophageal varices, portal hypertensive gastropathy and gastritis. Colonoscopy on 10/24/21 was a poor prep and showed severe diverticulosis in the rectosigmoid, colon, descending colon/splenic flexure and transverse colon. One 5 mm polyp in the sigmoid colon was removed with a hot snare. Resected, retrieved, clips placed. Repeat colonoscopy planned for 3-month Liver ultrasound showed hepatic cirrhosis, simple cyst of the right kidney. Objective Data Objective Data Vital Signs: Vital Signs Temp Pulse Resp BP Pulse Ox 98.4 F 55 L 16 147/58 H 98 10/25/21 06:46 10/25/21 06:46 10/25/21 06:46 10/25/21 06:46 10/25/21 06:46 Oxygen Flow Rate (L/min) 2 Oxygen Delivery Method Room Air Weight: 68.2 kg Body Mass Index (BMI) 30.3 Intake & Output: Intake and Output for Last 24 Hours 10/23/21 10/24/21 10/25/21 23:59 23:59 23:59 Intake Total 910 / 2910 3320 / 3320 Balance 910 / 2910 3320 / 3320 Lab / Micro Data Result Diagrams: 10/24/21 05:00 10/24/21 05:00 Labs: Laboratory Results - last 24 hr 10/24/21 11:51: POC Glucose 109 10/24/21 16:43: POC Glucose 96 10/24/21 19:24: Ammonia 12.0 10/24/21 20:49: POC Glucose 89 10/25/21 06:43: POC Glucose 104 Micro: Microbiology 10/22/21 16:08 Stool Stool Occult Blood (JULY) - Final Occult Blood Positive Physical Exam Narrative Physical exam: General: Alert, Oriented x3, Cooperative, No apparent distress, Well developed HEENT: Atraumatic Oral: Moist Mucosa Neck: Supple Lungs: Clear to auscultation Cardiovascular: HS I+II, regular, no murmurs Abdomen: Bowel Sounds Present, Soft, Non Tender Extremities: No edema Assessment & Plan Assessment/Plan (1) GI bleed: QUALIFIERS: GI bleed type/associated pathology: unspecified gastrointestinal hemorrhage type Qualified Code(s): K92.2 - Gastrointestinal hemorrhage, unspecified (2) Type II diabetes mellitus: QUALIFIERS: Diabetes mellitus complication status: with other specified complication Diabetes mellitus retirement insulin use: without ferry terminal supervisor use Qualified Code(s): E11.69 - Type 2 diabetes mellitus with other specified complication (3) Hyperlipidemia: QUALIFIERS: Hyperlipidemia type: unspecified Qualified Code(s): E78.5 - Hyperlipidemia, unspecified (4) Acute blood loss anemia: (5) Acute GI bleeding: PLAN: 1. Acute blood loss anemia secondary to acute GI bleed - gastritis History of Acute DVT in 09/2021 GI following; status post EGD that showed gastritis, portal hypertension, esophageal varices Colonoscopy showed severe diverticulosis, polyp was removed Continue on IV PPI 2. Cirrhosis, seen on ultrasound of the liver, ammonia was 12 Started on lactulose and rifaximin 3. Type II DM, blood sugars stable, hold Metformin, continue with insulin sliding scale 4. Rest of her chronic medical conditions include anxiety/depression/hypothyroidism/hyperlipidemia remained stable Charges/Coding Visit Charges Inpatient E&M: 19939 Subs Hosp L2
[2021-10-25 09:08] VITALS: BP 145/50; PULSE 54; RESP 16; TEMP 36.7; O2SAT 99
--- NOTE | 2021-10-25 09:24 | PCM.DC ---
Discharge Instructions Diet Discharge Diet: 1800 Calorie Control Diet, 2000 Calorie Control Diet and 2000 mg Sodium Diet Activity Discharge Activity: Return to Normal Activity Follow Up Care Test Results: Test results from this visit will be discussed in further detail at your follow-up appointment, if applicable. Discharge Plan Admission Admit Date/Time: 10/22/21 17:56 Primary Reason for Your Visit: Acute GI bleed Attending Provider: Ingrid Shelby Primary Care Provider: Michael Hobson Discharge Orders/Prescriptions Prescriptions: New Xifaxan 550 mg Tablet 550 mg PO BID 60 Days Qty: 120 RF: 0 lactulose 20 gram/30 mL Solution 20 g PO BID 30 Days Qty: 1800 RF: 0 Continued lorazepam 0.5 MG tablet 0.5 mg PO BID PRN (Reason: Anxiety) RF: 0 metformin 500 MG tablet 500 mg PO BIDCM RF: 0 travoprost [Travatan Z] 1 DROP bottle 1 drp Each Eye QHS RF: 0 levothyroxine 50 MCG tablet 50 mcg PO DAILY RF: 0 hydrocortisone 1 APPLIC cream 1 applic topical BID PRN (Reason: Itching) RF: 0 montelukast 10 MG tablet 10 mg PO QHS RF: 0 azelastine 1 SPRAY aerosol,spray 2 spray NASAL BID RF: 0 levalbuterol HCl [Xopenex Concentrate] 1.25 MG/0.5 ML solution for nebulization 1.25 mg IH Q4H PRN PRN (Reason: Shortness Of Breath) RF: 0 budesonide-formoterol [Symbicort] 1 INHALER inhaler 2 puff inhalation BID RF: 0 benzonatate 100 MG capsule 100 mg PO TID PRN PRN (Reason: Cough) RF: 0 ipratropium bromide 0.5 MG/2.5 ML solution 0.25 mg inhalation TID PRN (Reason: Wheezing) RF: 0 levalbuterol tartrate [Xopenex HFA] 15 GM HFA aerosol inhaler 2 puff inhalation Q4H PRN (Reason: Shortness Of Breath) RF: 0 duloxetine 60 mg capsule,delayed release(DR/EC) 60 mg PO DAILY RF: 0 pravastatin 20 mg tablet 20 mg PO QHS RF: 0 Eliquis DVT-PE Treat 30D Start 5 mg (74 tabs) tablets,dose pack 5 mg PO DAILY RF: 0 Changed omeprazole 40 mg Capsule,Delayed Release(Dr/Ec) 40 mg PO BIDCM 60 Days Qty: 30 RF: 0 Discontinued meloxicam 15 mg tablet 15 mg PO DAILY RF: 0 No Action trazodone 100 mg tablet 100 mg PO QHS RF: 0 Referrals / Follow Up: Michael Hobson MD [Primary Care Provider] - FriendSinan DO [STAFF PHYSICIAN] - Within 2 Weeks Disposition Disposition (needs filled in before D/C Order can be placed): Home, Self Care
[2021-10-25] MEDS: DULoxetine Hcl 60 MG Capsule PO (09:25)
[2021-10-25] MEDS: rifAXIMin 550 MG Tablet PO (09:25)
--- NOTE | 2021-10-25 09:28 | DS.PCM_ITS ---
Providers Date of Admission: 10/22/21 Date of Discharge: 10/25/21 Primary Care Physician: Dr. Michael Hobson MD Consultations 10/22/21 19:02 Consult: Gastroenterology Routine Consulting Provider: [facility] Reason for Consult: GI bleed EMERGENT Consult: No MD Notified: Yes Date Notified: 10/22/21 Time Notified: 17:59 Method of Notification: Verbal Reason For Visit: GI BLEED, ANEMIA D/T BLOOD LOSS Diagnosis Discharge Diagnosis (1) Type II diabetes mellitus: Status: Chronic Code(s): E11.9 - Type 2 diabetes mellitus without complications (2) Hyperlipidemia: Status: Chronic Code(s): E78.5 - Hyperlipidemia, unspecified (3) Acute blood loss anemia: Status: Acute Code(s): D62 - Acute posthemorrhagic anemia (4) Acute GI bleeding: Status: Acute Code(s): K92.2 - Gastrointestinal hemorrhage, unspecified (5) Gastritis: Status: Acute Code(s): K29.70 - Gastritis, unspecified, without bleeding (6) Cirrhosis: Status: Acute Code(s): K74.60 - Unspecified cirrhosis of liver Medications at Discharge Home Medications azelastine 2 spray NASAL BID 04/22/14 budesonide-formoterol [Symbicort] 2 puff INHALATION BID 04/22/14 hydrocortisone 1 applic TOPICAL BID PRN 04/22/14 levalbuterol HCl [Xopenex Concentrate] 1.25 mg IH Q4H PRN PRN 04/22/14 levothyroxine 50 mcg PO DAILY 04/22/14 lorazepam 0.5 mg PO BID PRN 04/22/14 metformin 500 mg PO BIDCM 04/22/14 montelukast 10 mg PO QHS 04/22/14 travoprost [Travatan Z] 1 drp EACH EYE QHS 04/22/14 benzonatate 100 mg PO TID PRN PRN 06/14/14 ipratropium bromide 0.25 mg INHALATION TID PRN 06/14/14 levalbuterol tartrate [Xopenex HFA] 2 puff INHALATION Q4H PRN 06/14/14 duloxetine 60 mg PO DAILY 07/30/21 Eliquis DVT-PE Treat 30D Start 5 mg PO DAILY 12/08/21 pravastatin 20 mg PO QHS 10/22/21 trazodone 100 mg PO QHS 10/22/21 lactulose 20 g PO BID 30 Days #1800 ml 10/25/21 omeprazole 40 mg PO BIDCM 60 Days #30 cap 10/25/21 rifaximin [Xifaxan] 550 mg PO BID 60 Days #120 tab 10/25/21 Hospital Course Operations None Procedures Colonoscopy (10/24/21) and EGD (10/23/21) Summary of Care Provided Minutes Spent on Discharge: 45 Hospital Course: 81-year-old female was recently diagnosed with right leg DVT, on Eliquis in September 2021 presented with acute anemia. Patient has been no ticing dark stools for the past 2 weeks, repeat blood work in her primary care office showed a hemoglobin drop from 10 to 7.5. Patient was also on NSAIDs. She was admitted to the PCU, started on IV PPI, Eliquis and NSAIDs were held. GI was consulted. Patient had an EGD on 10/23/21 that showed gastritis, portal gastropathy. Colonoscopy was done on 10/24 which was a suboptimal prep, showed severe diverticulosis in the rectosigmoid ascending colon and transverse colon. There was a 5 mm polyp that was removed. Plan was to have patient return back for repeat colonoscopy in 3 months. Patient also had liver ultrasound that showed cirrhosis. She was started on lactulose and rifaximin. She will follow-up with her primary care doctor in the outpatient. Patient was seen and examined the day of discharge. Denied any new complaints. She was discharged home with her children. Physical Exam Narrative Physical exam: General: Alert, Oriented x3, Cooperative, No apparent distress, Well developed HEENT: Atraumatic Oral: Moist Mucosa Neck: Supple Lungs: Clear to auscultation Cardiovascular: HS I+II, regular, no murmurs Abdomen: Bowel Sounds Present, Soft, Non Tender Extremities: No edema Weight / BMI Weight Weight: 68.2 kg Body Mass Index (BMI) 30.3 ABG / Lab / Microbiology Data Result Diagrams: 10/25/21 09:28 10/25/21 09:28 Laboratory: Laboratory Results - last 24 hr 10/24/21 11:51: POC Glucose 109 10/24/21 16:43: POC Glucose 96 10/24/21 19:24: Ammonia 12.0 10/24/21 20:49: POC Glucose 89 10/25/21 06:43: POC Glucose 104 Microbiology: Microbiology 10/22/21 16:08 Stool Stool Occult Blood (JULY) - Final Occult Blood Positive D/C Instructions Discharge Diet: 1800 Calorie Control Diet, 2000 Calorie Control Diet and 2000 mg Sodium Diet Meaningful Use Info Meaningful Use Diagnoses (Choose all that apply): None applicable Discharge Plan Admission Admit Date/Time: 10/22/21 17:56 Primary Reason for Your Visit: Acute GI bleed Attending Provider: Ingrid Shelby Primary Care Provider: Michael Hobson Discharge Orders/Prescriptions Prescriptions: New Xifaxan 550 mg Tablet 550 mg PO BID 60 Days Qty: 120 RF: 0 lactulose 20 gram/30 mL Solution 20 g PO BID 30 Days Qty: 1800 RF: 0 Continued lorazepam 0.5 MG tablet 0.5 mg PO BID PRN (Reason: Anxiety) RF: 0 metformin 500 MG tablet 500 mg PO BIDCM RF: 0 travoprost [Travatan Z] 1 DROP bottle 1 drp Each Eye QHS RF: 0 levothyroxine 50 MCG tablet 50 mcg PO DAILY RF: 0 hydrocortisone 1 APPLIC cream 1 applic topical BID PRN (Reason: Itching) RF: 0 montelukast 10 MG tablet 10 mg PO QHS RF: 0 azelastine 1 SPRAY aerosol,spray 2 spray NASAL BID RF: 0 levalbuterol HCl [Xopenex Concentrate] 1.25 MG/0.5 ML solution for nebulization 1.25 mg IH Q4H PRN PRN (Reason: Shortness Of Breath) RF: 0 budesonide-formoterol [Symbicort] 1 INHALER inhaler 2 puff inhalation BID RF: 0 benzonatate 100 MG capsule 100 mg PO TID PRN PRN (Reason: Cough) RF: 0 ipratropium bromide 0.5 MG/2.5 ML solution 0.25 mg inhalation TID PRN (Reason: Wheezing) RF: 0 levalbuterol tartrate [Xopenex HFA] 15 GM HFA aerosol inhaler 2 puff inhalation Q4H PRN (Reason: Shortness Of Breath) RF: 0 duloxetine 60 mg capsule,delayed release(DR/EC) 60 mg PO DAILY RF: 0 pravastatin 20 mg tablet 20 mg PO QHS RF: 0 Eliquis DVT-PE Treat 30D Start 5 mg (74 tabs) tablets,dose pack 5 mg PO DAILY RF: 0 Changed omeprazole 40 mg Capsule,Delayed Release(Dr/Ec) 40 mg PO BIDCM 60 Days Qty: 30 RF: 0 Discontinued meloxicam 15 mg tablet 15 mg PO DAILY RF: 0 No Action trazodone 100 mg tablet 100 mg PO QHS RF: 0 Referrals / Follow Up: Sinan Arellano DO [STAFF PHYSICIAN] - Within 2 Weeks Michael Hobson MD [Primary Care Provider] - 11/18/21 1:00 pm Disposition Disposition (needs filled in before D/C Order can be placed): Home, Self Care Charges/Coding Visit Charges Inpatient E&M: 89022 Disch Hosp
[2021-10-25 09:47] LABS: Absolute Lymphocyte Count 1.23 X10^3/uL (0.83-4.51); Absolute Neutrophil Count 4.9 X10^3/uL (2.0-7.7); Basophil# 0.02 X10^3/uL; Basophil% 0.3 % (0-1); Eosinophil# 0.22 X10^3/uL; Eosinophils% 3.2 % (0-5); Hematocrit 31.8 % (37-47); Hemoglobin 9.9 g/dL (12.0-15.0); Lymphocyte # 1.23 X10^3/ul (0.83-4.51); Lymphocyte % 17.9 % (19-41); Mean Corp Hgb Conc 31.1 g/dL (32-36); Mean Corpuscular Volume 89.8 fL (81-99); Mean Platelet Vol. 8.8 fl (6.2-12.0); Monocyte# 0.46 X10^3/uL; Monocyte% 6.7 % (0-10); NRBC Flagged by Analyzer 0 % (0-5); Neutrophil # 4.93 X10^3/uL (2.7-7.7); Neutrophil % 71.6 % (47-70); Platelet Count 377 K/mm3 (150-450); RBC Distribution Width CV 16.5 % (11.6-14.6); RBC Distribution Width SD 53.2 fl (35.1-43.9); Red Blood Count 3.54 M/mm3 (4.2-5.4); White Blood Count 6.9 K/mm3 (4.4-11.0)
--- NOTE | 2021-10-25 09:49 | PN.GI_ITS ---
Subjective Subjective patient is doing well. She underwent colonoscopy yesterday. She is not having any bleeding. She is tolerating a diet. Objective Data Objective Data Vital Signs: Vital Signs Temp Pulse Resp BP Pulse Ox 98.1 F 54 L 16 145/50 H 99 10/25/21 09:08 10/25/21 09:08 10/25/21 09:08 10/25/21 09:08 10/25/21 09:08 Oxygen Flow Rate (L/min) 2 Oxygen Delivery Method Room Air Weight: 150 lb 5.684 oz Body Mass Index (BMI) 30.3 Intake & Output: Intake and Output for Last 24 Hours 10/23/21 10/24/21 10/25/21 23:59 23:59 23:59 Intake Total 910 / 2910 3320 / 3320 Balance 910 / 2910 3320 / 3320 Lab / Micro Data Result Diagrams: 10/25/21 09:28 10/24/21 05:00 Labs: Laboratory Results - last 24 hr 10/24/21 11:51: POC Glucose 109 10/24/21 16:43: POC Glucose 96 10/24/21 19:24: Ammonia 12.0 10/24/21 20:49: POC Glucose 89 10/25/21 06:43: POC Glucose 104 10/25/21 09:28: WBC 6.9, RBC 3.54 L, Hgb 9.9 L, Hct 31.8 L, MCV 89.8, MCH 28.0, MCHC 31.1 L, RDW Std Deviation 53.2 H, RDW Coeff of Naina 16.5 H, Plt Count 377, MPV 8.8, Immature Gran % (Auto) 0.300, Neut % (Auto) 71.6 H, Lymph % (Auto) 17.9 L, Harmon % (Auto) 6.7, Eos % (Auto) 3.2, Baso % (Auto) 0.3, Absolute Neuts (auto) 4.9, Absolute Lymphs (auto) 1.23, Nucleated RBC % 0 Micro: Microbiology 10/22/21 16:08 Stool Stool Occult Blood (JULY) - Final Occult Blood Positive Physical Exam Const alert General Appearance: cooperative Orientation / Consciousness: oriented to person HEENT hearing grossly normal bilaterally Head and Scalp: normal to inspection Face and Sinus: face symmetric Nose: external nose normal Mouth: oral and palatal mucosa normal Eyes conjunctivae normal General Eye: normal appearance of both eyes Neck full ROM General: normal visual inspection Lymph Lymphatic: no lymphadenopathy noted Chest inspection of chest normal and palpation of chest normal Chest: symmetrical chest wall rise Resp normal respiratory effort Effort and Inspection: able to speak in complete sentences Cardio regular rate GI non-distended Percussion: normal to percussion Rectal Exam: deferred Neuro Speech: speech normal Gait (Neuro): normal gait Assessment & Plan Assessment/Plan (1) Cirrhosis: PLAN: This is a new diagnosis for the patient. Her meld is currently 16. Because of her advanced age she is not a candidate for transplant. She also has multiple comorbidities. At this time she is not showing any signs of decompensation as her ammonia is 12 and she is not showing any clinically signs of encephalopathy. She will be on lactulose once a day at home and Xifaxan 550 mg twice a day. I talk with her family regarding her prognosis. We will have a close eye on her as an outpatient. 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 I will discuss with her and her family the options as an outpatient. At this time her blood pressure is stable. Because of her fall risk I do not want to put her on propranolol because her heart rate typically runs in the high 50s. (2) Acute GI bleeding: PLAN: She was identified as having portal gastropathy, esophageal varices and a large hiatal hernia in the upper GI tract. Her hemoglobin seems to be stable. We will follow-up her hemoglobin as an outpatient. No iron therapy at this time. She will be on PPI therapy twice a day. She did recently have a pulmonary embolism so she will have to be anticoagulated. The risk and benefits of anticoagulation were discussed with the patient and her family. Hopefully this will be a short period of time. Charges/Coding Visit Charges Inpatient E&M: 18285 Subs Hosp L3
[2021-10-25 10:10] LABS: ALB/GLOB Ratio 0.7 RATIO (0.9-2.4); AST(SGOT) 20 U/L (15-37); Alanine Aminotransfer ALT/SGPT 17 U/L (13-56); Albumin, Serum 3.2 g/dL (3.2-5.0); Alkaline Phosphatase 55 U/L (45-117); Anion Gap 8 (5-15); BUN 16 mg/dL (7-18); BUN/Creat Ratio 12.4 RATIO (10-20); Calcium,Total 9.8 mg/dL (8.5-10.1); Chloride 109 mmol/L (98-107); Creatinine, Serum 1.29 mg/dL (0.55-1.02); EST Glomerular Filtration Rate 42 mL/min (>60); Est Glom Filt Rate - Afr Amer 51 mL/min (>60); Estimated Creatinine Clearance 38.07 ml/min; Globulin 4.3 g/dL (2.2-4.2); Glucose 128 mg/dL (74-106); Potassium 4.8 mmol/L (3.5-5.1); Protein, Total 7.5 g/dL (6.4-8.2); Sodium Level 141 mmol/L (136-145)
--- NOTE | 2021-10-25 10:29 | CASEMGMT ---
Received tc from pharmacy at [facility] who states pt needs prior auth for xifaxin. TC to , was made aware that this has to go for pharmacological review with results within 72 hours. Reference # [id number]. Notified , he states he will work on this as outpt. Notified pt nurse as well.
[2021-10-25 14:12] VITALS: BP 108/96; PULSE 64; RESP 16; TEMP 36.6; O2SAT 96
== END 2021-10-25 14:50 | disposition home or self-care (01) | DRG 378 ==
LOC: ED 17:31 → PCU 18:31
PROVIDERS: Anesthesiology; Internal Medicine Gastroenterology; Admitting Provider Family Medicine; Emergency Provider Emergency Medicine; PCP Internal Medicine; Visit Provider Internal Medicine
PROC: 0DJ08ZZ Inspection of Upper Intestinal Tract, Via Natural or Artificial Opening Endoscopic (ICD-10-PCS; CPT 43235; principal; 2021-10-23 17:40)
PROC: 0DJD8ZZ Inspection of Lower Intestinal Tract, Via Natural or Artificial Opening Endoscopic (ICD-10-PCS; CPT 45378; principal; 2021-10-24 12:55)
DX: K92.1 Melena (principal); D62 Acute posthemorrhagic anemia; K76.6 Portal hypertension; I85.10 Secondary esophageal varices without bleeding; K29.70 Gastritis, unspecified, without bleeding; K63.5 Polyp of colon; N28.1 Cyst of kidney, acquired; K74.60 Unspecified cirrhosis of liver; K57.30 Diverticulosis of large intestine without perforation or abscess without bleeding; K44.9 Diaphragmatic hernia without obstruction or gangrene; I10 Essential (primary) hypertension; D50.9 Iron deficiency anemia, unspecified; E03.9 Hypothyroidism, unspecified; E78.5 Hyperlipidemia, unspecified; E11.9 Type 2 diabetes mellitus without complications; F41.9 Anxiety disorder, unspecified; J44.9 Chronic obstructive pulmonary disease, unspecified; M19.90 Unspecified osteoarthritis, unspecified site; Z87.19 Personal history of other diseases of the digestive system; Z85.828 Personal history of other malignant neoplasm of skin; Z86.718 Personal history of other venous thrombosis and embolism; Z86.711 Personal history of pulmonary embolism; Z79.01 Long term (current) use of anticoagulants; Z79.84 Long term (current) use of oral hypoglycemic drugs; Z79.899 Other long term (current) drug therapy; Z87.891 Personal history of nicotine dependence
CPT/HCPCS: 36415; 76705; 80048; 80053; 82140; 82274; 82962; 83036; 83735; 84100; 84443; 85025; 85610; 85730; 86850; 86900; 86901; 86920; 93005; 94640; 99285; J7040; P9016; A4216; J2405

== ENCOUNTER 2021-11-21 14:04 | Outpatient (CLI) | payer MEDICARE, SELFPAY ==
[2021-11-21 17:24] LABS: CRP < 2.90 mg/L (0.0-3.0); Ferritin 10 ng/mL (8-252); Iron 28 ug/dL (50-170); Iron Binding Capacity,Total 462 ug/dL (250-450); LDH 150 U/L (84-246); PERCENT IRON SATURATION 6.1 % (15.0-55.0)
[2021-11-21 17:27] LABS: Erythrocyte Sedimentation Rate 25 mm/hr (0-30)
[2021-11-21 19:15] LABS: Hemoglobin A1c < 3.8 % (3.8-5.6)
[2021-11-24 14:08] LABS: Anti-Centromere B Ab <0.2 AI (0.0-0.9); Anti-Chromatin <0.2 AI (0.0-0.9); Anti-Jo <0.2 AI (0.0-0.9); Anti-Scleroderma-70 AB <0.2 AI (0.0-0.9); RNP Ab <0.2 AI (0.0-0.9); SJOGREN'S Anti-SS-A test < 0.2 AI (0.0-0.9); SJOGREN'S Anti-SS-B test < 0.2 AI (0.0-0.9); Smith Ab <0.2 AI (0.0-0.9)
[2021-11-24 16:09] LABS: Anti-Mitochondrial AB <20.0 Units (0.0-20.0); Anti-dsDNA Ab 2 IU/mL (0-9)
[2021-11-26 00:06] LABS: Angiotensin Convert Enzyme < 15 U/L (14-82); Ceruloplasmin 27.8 mg/dL (19.0-39.0); Cytoplasmic Ab (C-ANCA) <1:20 titer (Neg:<1:20); HEPATITIS B SURFACE AG Negative (Negative); Hepatitis A IgM Antibody Negative (Negative); Hepatitis B Core AB IgM Negative (Negative)
[2021-11-26 08:54] LABS: AFP, Tumor Marker 3.2 ng/mL (0.0-8.3); Anti-Smooth Muscle ABS 8 Units (0-19); Copper, Serum or Plasma 109 ug/dL (80-158); Haptoglobin 253 mg/dL (42-346); Hep C Antibodies 0.1 s/co ratio (0.0-0.9); Perinuclear Ab (P-ANCA) <1:20 titer (Neg:<1:20)
== END 2021-11-21 23:59 | disposition short-term general hospital (02) ==
LOC: LAB 14:05
PROVIDERS: PCP Internal Medicine; Visit Provider Internal Medicine Gastroenterology
DX: K74.60 Unspecified cirrhosis of liver (principal); E11.59 Type 2 diabetes mellitus with other circulatory complications
CPT/HCPCS: 36415; 80074; 82105; 82164; 82390; 82525; 82728; 83010; 83036; 83516; 83540; 83550; 83615; 85652; 86140; 86225; 86235; 86256

== ENCOUNTER 2021-12-15 09:44 | Outpatient (CLI) | payer MEDICARE, SELFPAY ==
--- NOTE | 2021-12-15 09:47 | US_ITS ---
STUDY: ABDOMINAL ULTRASOUND - ELASTOGRAPHY REASON FOR VISIT: Female, 81 years old. History of cirrhosis. TECHNIQUE: Liver stiffness measurements were obtained on a [employer] S&T RS 85 ultrasound machine using a CA 1-7 probe following the SRU guidelines. 3 measurements were obtained using a 2-D-SWE method. The IQR/M was 19% suggesting a quality data set. TECHNICAL QUALITY: Adequate. COMPARISON: Comparison is made with prior study dated 10/23/2021. FINDINGS: Liver: There is evidence of cirrhosis. Median liver stiffness measured 12.5 kPa. US/Elastography Parenchyma/Organ IMPRESSION: Liver stiffness measures 12.5 kPa compatible with F3 Metavir score. Electronically Signed: Jos Bains MD at 12:05 EST ,
== END 2021-12-15 23:59 | disposition short-term general hospital (02) ==
LOC: US 09:45
PROVIDERS: PCP Internal Medicine; Referring Provider Internal Medicine Gastroenterology; Visit Provider Internal Medicine Gastroenterology
DX: K74.60 Unspecified cirrhosis of liver (principal)
CPT/HCPCS: 76981

== ENCOUNTER 2021-12-24 14:39 | Outpatient (CLI) | payer MEDICARE, SELFPAY ==
--- NOTE | 2021-12-24 14:53 | CT_ITS ---
HISTORY: Cirrhosis -- Triple phase. TECHNIQUE: Helically acquired images were obtained of the abdomen without and with IV contrast. A radiation dose optimization technique was used for this scan. IV Contrast dosage and agent: 100 mL Isovue-370. Oral contrast: None. # of images incl. paperwork: [id number]. COMPARISON: US 10/23/2021. FINDINGS: LOWER CHEST: Mild lingular atelectasis or scarring. BOWEL: Moderate hiatal hernia. Bowel nondilated. Colonic diverticula cyst without pericolonic inflammation. PERITONEUM: No significant ascites or enlarged lymph nodes. LIVER: Heterogeneous with nodular contour. No enhancing mass. Calcified granulomas. GALLBLADDER/BILIARY TREE: Gallbladder present. SPLEEN: Calcified granulomas. Nonenlarged. PANCREAS: Mild atrophy. KIDNEYS: No hydronephrosis, nephrolithiasis, or enhancing mass. Lobulated contours with extrarenal pelves noted. ADRENAL GLANDS: No nodules. VESSELS: No abdominal aortic aneurysm. Moderate atherosclerosis. ABDOMINAL WALL: Mild scarring of the umbilicus. BONES: Degenerative change. Sacral stimulator electrode identified. CT/Abdomen W/WO IV Contrast IMPRESSION: Cirrhotic liver without evidence for enhancing liver mass. Moderate hiatal hernia. Colonic diverticulosis. Individualized dose optimization techniques were used for this CT. at 1550 Reported and signed by: Nette Yao MD Electronically Signed: Nette Yao MD at 15:49 EST ,
[2021-12-24 15:31] LABS: CREATININE FINGERSTICK 1.2 mg/dL (0.55-1.02)
== END 2021-12-24 23:59 | disposition home or self-care (01) ==
LOC: CT 14:51
PROVIDERS: PCP Internal Medicine; Referring Provider Internal Medicine Gastroenterology; Visit Provider Internal Medicine Gastroenterology
DX: K74.60 Unspecified cirrhosis of liver (principal)
CPT/HCPCS: 74170; Q9967

== ENCOUNTER 2022-01-02 15:13 | Outpatient (CLI) | payer MEDICARE, SELFPAY ==
[2022-01-02 15:53] LABS: Hematocrit 23.1 % (37-47); Hemoglobin 6.9 g/dL (12.0-15.0); Immature Platelet Fraction 2.3 % (1.0-7.9); Mean Corp Hgb Conc 29.9 g/dL (32-36); Mean Corpuscular Hgb 24.6 pg (27.0-32.0); Mean Corpuscular Volume 82.2 fL (81-99); Mean Platelet Vol. 9.4 fl (6.2-12.0); POSITIVE MORPHOLOGY YES; Platelet Count 351 K/mm3 (150-450); RBC Distribution Width CV 16.7 % (11.6-14.6); RBC Distribution Width SD 50.7 fl (35.1-43.9); RET-HE 18.6 pg (30-35); Red Blood Count 2.81 M/mm3 (4.2-5.4); White Blood Count 6.3 K/mm3 (4.4-11.0)
[2022-01-02 16:30] LABS: ALB/GLOB Ratio 0.8 RATIO (0.9-2.4); AST(SGOT) 18 U/L (15-37); Alanine Aminotransfer ALT/SGPT 16 U/L (13-56); Albumin, Serum 3.3 g/dL (3.2-5.0); Alkaline Phosphatase 54 U/L (45-117); Anion Gap 7 (5-15); BUN 10 mg/dL (7-18); BUN/Creat Ratio 8.8 RATIO (10-20); Calcium,Total 8.8 mg/dL (8.5-10.1); Chloride 109 mmol/L (98-107); Creatinine, Serum 1.13 mg/dL (0.55-1.02); EST Glomerular Filtration Rate 49 mL/min (>60); Est Glom Filt Rate - Afr Amer 60 mL/min (>60); Ferritin 6 ng/mL (8-252); Globulin 4.2 g/dL (2.2-4.2); Glucose 120 mg/dL (74-106); Iron 11 ug/dL (50-170); Iron Binding Capacity,Total 443 ug/dL (250-450); PERCENT IRON SATURATION 2.5 % (15.0-55.0); Potassium 3.6 mmol/L (3.5-5.1); Protein, Total 7.5 g/dL (6.4-8.2); Sodium Level 141 mmol/L (136-145)
[2022-01-02 17:47] LABS: Scan Indicated on CBC? Y/N YES- FLAGS NOTED
== END 2022-01-02 23:59 | disposition home or self-care (01) ==
LOC: LAB 15:14
PROVIDERS: PCP Internal Medicine; Visit Provider Internal Medicine Gastroenterology
DX: E11.69 Type 2 diabetes mellitus with other specified complication (principal); D62 Acute posthemorrhagic anemia
CPT/HCPCS: 36415; 80053; 82728; 83540; 83550; 85027; 85045

== ENCOUNTER 2022-01-02 18:21 | Inpatient (IN) | payer MEDICARE, SELFPAY ==
[2022-01-02] VITALS (10 sets, daily range): BP systolic 113–174; BP diastolic 55–84; PULSE 58–69; RESP 13–21; TEMP 35.8–36.6; O2SAT 92–99; BMI 30.2
--- NOTE | 2022-01-02 19:44 | EKG12_ITS ---
Test Reason : DYSRHYTHMIA Blood Pressure : / mmHG Vent. Rate : 065 BPM Atrial Rate : 065 BPM P-R Int : 148 ms QRS Dur : 088 ms QT Int : 450 ms P-R-T Axes : 047 024 058 degrees QTc Int : 468 ms Normal sinus rhythm Normal ECG Confirmed by MAGDY MARX, ESTELITA ([id number]), sound editor MADELIN FROST ([id number]) on 01/06/2022 10:19:57 A M Referred By: DARLING Confirmed By:KEVIN CURRAN MD
[2022-01-02 20:04] LABS: Absolute Lymphocyte Count 1.64 X10^3/uL (0.83-4.51); Absolute Neutrophil Count 4.8 X10^3/uL (2.0-7.7); Basophil# 0.03 X10^3/uL; Basophil% 0.4 % (0-1); Eosinophil# 0.16 X10^3/uL; Eosinophils% 2.2 % (0-5); Hematocrit 23.2 % (37-47); Hemoglobin 6.8 g/dL (12.0-15.0); Lymphocyte # 1.64 X10^3/ul (0.83-4.51); Mean Corp Hgb Conc 29.3 g/dL (32-36); Mean Corpuscular Hgb 23.9 pg (27.0-32.0); Mean Corpuscular Volume 81.7 fL (81-99); Mean Platelet Vol. 9.6 fl (6.2-12.0); Monocyte# 0.46 X10^3/uL; Monocyte% 6.4 % (0-10); NRBC Flagged by Analyzer 0 % (0-5); Neutrophil # 4.83 X10^3/uL (2.7-7.7); Neutrophil % 67.7 % (47-70); Platelet Count 372 K/mm3 (150-450); RBC Distribution Width SD 50.6 fl (35.1-43.9); Red Blood Count 2.84 M/mm3 (4.2-5.4); White Blood Count 7.1 K/mm3 (4.4-11.0)
[2022-01-02 20:15] LABS: Anion Gap 10 (5-15); BUN 11 mg/dL (7-18); BUN/Creat Ratio 9.2 RATIO (10-20); Calcium,Total 8.9 mg/dL (8.5-10.1); Chloride 109 mmol/L (98-107); EST Glomerular Filtration Rate 46 mL/min (>60); Est Glom Filt Rate - Afr Amer 56 mL/min (>60); Estimated Creatinine Clearance 40.81 ml/min; Glucose 115 mg/dL (74-106); Potassium 3.2 mmol/L (3.5-5.1); Sodium Level 143 mmol/L (136-145); Troponin-I HS 19 pg/mL (3.0-54.0)
--- NOTE | 2022-01-02 20:39 | EDS_ITS ---
HPI HPI - GI History of Present Illness Chief Complaint: Weakness Narrative Narrative: 81-year-old female presenting with maroonish stools for the last couple of days. She admits to feeling a little short of breath when she ambulates. She also states that she feels a little lightheaded. Patient is on Eliquis but cannot tell me what she is on it for. Patient states that Dr. Arellano started the Eliquis. Patient has history of cirrhosis, diabetes,, hyperlipidemia. He does not have any chest pain or abdominal pain. She denies fever or chills. She denies urinary complaints. She was sent by Dr. Arellano for transfusion. She recently had upper endoscopy and lower and is noted to have esophageal varices as well as gastritis, but there were no bleeding sources from the colonoscopy. [facility] Medical History Anxiety Arthritis Asthma Chest pain COPD (chronic obstructive pulmonary disease) Depression DVT (deep venous thrombosis) Former smoker GERD (gastroesophageal reflux disease) GI bleed Hypertension Pulmonary embolism Skin cancer Home Medications azelastine 2 spray NASAL BID 04/22/14 [History Last Taken 05/21/14] budesonide-formoterol [Symbicort] 2 puff INHALATION BID 04/22/14 [History Last Taken 10/19/21] hydrocortisone 1 applic TOPICAL BID PRN 04/22/14 [History Last Taken Unknown] levalbuterol HCl [Xopenex Concentrate] 1.25 mg IH Q4H PRN PRN 04/22/14 [History Last Taken 1 Week Ago ~10/15/21] levothyroxine 50 mcg PO DAILY 04/22/14 [History Last Taken 10/22/21] lorazepam 0.5 mg PO BID PRN 04/22/14 [History Last Taken 10/22/21] metformin 500 mg PO BIDCM 04/22/14 [History Last Taken 10/22/21] montelukast 10 mg PO QHS 04/22/14 [History Last Taken 06/13/14] travoprost [Travatan Z] 1 drp EACH EYE QHS 04/22/14 [History Last Taken 10/20/21] benzonatate 100 mg PO TID PRN PRN 06/14/14 [History Last Taken 05/21/14] ipratropium bromide 0.25 mg INHALATION TID PRN 06/14/14 [History Last Taken 1 Week Ago ~10/15/21] levalbuterol tartrate [Xopenex HFA] 2 puff INHALATION Q4H PRN 06/14/14 [History Last Taken 10/21/21] duloxetine 60 mg PO DAILY 07/30/21 [History Last Taken 10/22/21] Eliquis DVT-PE Treat 30D Start 5 mg PO DAILY 10/22/21 [History Last Taken 10/22/21] pravastatin 20 mg PO QHS 10/22/21 [History Last Taken 10/21/21] trazodone 100 mg PO QHS 10/22/21 [History Last Taken 10/21/21] lactulose 20 g PO BID 30 Days #1800 ml 10/25/21 [Rx Last Taken Unknown] omeprazole 40 mg PO BIDCM 60 Days #30 cap 10/25/21 [Rx Last Taken 10/22/21] rifaximin [Xifaxan] 550 mg PO BID 60 Days #120 tab 10/25/21 [Rx Last Taken Unknown] pantoprazole 40 mg tablet,delayed release 40 mg PO DAILY #30 tab 11/21/21 [Rx Last Taken Unknown] Allergy/AdvReac Type Severity Reaction Status Date / Time bacitracin Allergy Rash Verified 10/22/21 13:14 [From Neosporin ([id number])] bacitracin zinc Allergy Rash Verified 10/22/21 13:14 [From Neosporin ([id number])] diclofenac [Diclofenac] Allergy Unknown Verified 10/22/21 13:14 dicyclomine Allergy Unknown Verified 10/22/21 13:14 gabapentin Allergy Unknown Verified 10/22/21 13:14 hyoscyamine sulfate Allergy Unknown Verified 10/22/21 13:14 [From Levbid] metronidazole [From Flagyl] Allergy Unknown Verified 10/22/21 13:14 neomycin sulfate Allergy Rash Verified 10/22/21 13:14 [From Neosporin ([id number])] oxaprozin [From Daypro] Allergy Itching Verified 10/22/21 13:14 polymyxin B Allergy Rash Verified 10/22/21 13:14 [From Neosporin ([id number])] polymyxin B sulfate Allergy Rash Verified 10/22/21 13:14 [From Polysporin] propoxyphene HCl Allergy Unknown Verified 10/22/21 13:14 [From Darvon] atorvastatin calcium AdvReac muscle Verified 10/22/21 13:14 [From Lipitor] aches shellfish derived AdvReac vomitting Verified 10/22/21 13:14 Family History Other Colon cancer Hypertension Surgical History H/O: hysterectomy Social History household members: none Smoking Status: Former smoker substance use type: does not use ROS ROS ED Constitutional Constitutional ED: Denies fever(s) ENT ENT ED: Denies rhinorrhea or sore throat Cardiovascular Cardiovascular: Denies chest pain or palpitations Respiratory/Chest Respiratory/Chest: Reports dyspnea and dyspnea on exertion Gastrointestinal Gastrointestinal: Reports other Details: Maroonish stool ; Denies abdominal pain or nausea Genitourinary Genitourinary ED: Denies dysuria or hematuria Musculoskeletal Musculoskeletal: Denies arthralgias or myalgias Integumentary Denies abscess or rash Neurologic Neurologic: Denies headache(s) EXAM Physical Exam Const Vital Signs: 01/02/22 18:22 01/02/22 19:47 01/02/22 20:43 Temperature 96.5 F L Temperature Source Temporal Pulse Rate 69 65 60 Respiratory Rate 18 18 Blood Pressure 174/60 H 113/84 H 161/55 H Blood Pressure Mean 98 93 90 Pulse Ox 92 98 97 Oxygen Delivery Method Room Air Room Air Room Air 01/02/22 21:40 01/02/22 21:46 01/02/22 21:50 Temperature 97.5 F L 97.7 F L Temperature Source Temporal Temporal Pulse Rate 59 L 62 60 Respiratory Rate 13 18 18 Blood Pressure 160/64 H 164/56 H 165/56 H Blood Pressure Mean 96 92 92 Pulse Ox 97 95 94 Oxygen Delivery Method Room Air Room Air Room Air 01/02/22 22:00 01/02/22 23:20 01/02/22 23:26 Temperature 97.7 F L 97.8 F 97.8 F Temperature Source Temporal Temporal Temporal Pulse Rate 61 59 L 63 Respiratory Rate 16 16 21 H Blood Pressure 164/56 H 172/66 H 172/66 H Blood Pressure Mean 92 101 101 Pulse Ox 99 97 97 Oxygen Delivery Method Room Air Room Air Room Air 01/02/22 23:41 Temperature 97.5 F L Temperature Source Temporal Pulse Rate 58 L Respiratory Rate 21 H Blood Pressure 172/66 H Blood Pressure Mean 101 Pulse Ox 97 Oxygen Delivery Method Room Air Positive well nourished General Appearance ED: NAD and pallor HEENT Reports moist mucous membranes normocephalic and atraumatic Eyes PERRL and EOMs intact bilaterally General Eye ED: Yes pale conjunctiva Neck no lymphadenopathy and supple Resp normal respiratory effort and clear to auscultation bilaterally Cardio regular rate and regular rhythm GI non-tender and non-distended Palpation: soft Neuro Sensorium / Orientation: alert, oriented to person, oriented to place and oriented to time Psych mental status grossly normal and thought process normal Skin General Skin Exam: pallor; Negative for jaundice MDM MDM MDM Narrative Medical decision making narrative: Patient presenting with fatigue, weakness, complaint of recent maroonish stools. On exam she found stool and she is Hemoccult negative. Her hemoglobin is low today at 6.8. She was typed and crossed for 2 units of blood. Because she has a complaint of shortness of breath I did obtain a chest x-ray which shows no acute cardiopulmonary process on my interpretation. Her EKG on my interpretation is normal sinus rhythm at 65 bpm without sign of ischemic change or dysrhythmia. High-sensitivity troponin is 19. Potassium slightly low at 3.2 and this will repleated orally. Since the patient is on Eliquis and having acute anemia I presume this is blood loss anemia and after reviewing Dr. Arellano's note he to all of this blood loss anemia as well. Patient has been stable here. I think she would benefit from admission given her anemia and likely GI bleed that is slow and for some reason undetected. Discussed with hospitalist for admission. Impression: 1. Acute blood loss anemia Lab Data Attestation: I reviewed the patient's lab results. Labs: Laboratory Results - last 24 hr 01/02/22 01/02/22 01/02/22 18:50 18:50 18:50 WBC 7.1 RBC 2.84 L Hgb 6.8 L Hct 23.2 L MCV 81.7 MCH 23.9 L MCHC 29.3 L RDW Std Deviation 50.6 H RDW Coeff of Naina 17.0 H Plt Count 372 MPV 9.6 Immature Gran % (Auto) 0.300 Neut % (Auto) 67.7 Lymph % (Auto) 23.0 [place] % (Auto) 6.4 Eos % (Auto) 2.2 Baso % (Auto) 0.4 Absolute Neuts (auto) 4.8 Absolute Lymphs (auto) 1.64 Nucleated RBC % 0 PT 16.5 H INR 1.4 Sodium Potassium Chloride Carbon Dioxide Anion Gap BUN Creatinine Estim Creat Clear Calc Est GFR (MDRD) Af Amer Est GFR (MDRD) Non-Af BUN/Creatinine Ratio Glucose Calcium Total Bilirubin Direct Bilirubin AST ALT Alkaline Phosphatase Troponin I High Sens Total Protein Albumin Globulin Urine Color Urine Clarity Urine pH Ur Specific [place] Urine Protein Urine Glucose (UA) Urine Ketones Urine Occult Blood Urine Nitrite Urine Bilirubin Urine Urobilinogen Ur Leukocyte Esterase Urine RBC Urine WBC Ur Squamous Epith Cells Urine Bacteria Urine Mucus Blood Type A POSITIVE Antibody Screen NEGATIVE Crossmatch See Detail 01/02/22 01/02/22 01/02/22 18:50 18:50 21:45 WBC RBC Hgb Hct MCV MCH MCHC RDW Std Deviation RDW Coeff of Naina Plt Count MPV Immature Gran % (Auto) Neut % (Auto) Lymph % (Auto) [place] % (Auto) Eos % (Auto) Baso % (Auto) Absolute Neuts (auto) Absolute Lymphs (auto) Nucleated RBC % PT INR Sodium 143 Potassium 3.2 L Chloride 109 H Carbon Dioxide 24.0 Anion Gap 10 BUN 11 Creatinine 1.20 H Estim Creat Clear Calc 40.81 Est GFR (MDRD) Af Amer 56 L Est GFR (MDRD) Non-Af 46 L BUN/Creatinine Ratio 9.2 L Glucose 115 H Calcium 8.9 Total Bilirubin 0.20 Direct Bilirubin 0.10 AST 20 ALT 18 Alkaline Phosphatase 56 Troponin I High Sens 19 Total Protein 8.0 Albumin 3.6 Globulin 4.4 H Urine Color Yellow Urine Clarity Clear Urine pH 6.0 Ur Specific [place] 1.015 Urine Protein 15 H Urine Glucose (UA) Normal Urine Ketones Negative Urine Occult Blood Negative Urine Nitrite Negative Urine Bilirubin Negative Urine Urobilinogen Normal Ur Leukocyte Esterase 100 H Urine RBC 0 SEEN Urine WBC 0-5 SEEN Ur Squamous Epith Cells 0-5 SEEN Urine Bacteria 0 SEEN Urine Mucus 0 SEEN Blood Type Antibody Screen Crossmatch Radiography Diagnostic Testing: Clinical Impression(s) from Imaging Studies Chest X-Ray 01/02/22 20:41 IMPRESSION: Degenerative changes, as described above. No demonstrated acute cardiopulmonary process. Electronically Signed: Yo Gallardo MD at 21:43 EST , Discharge Plan Triage Chief Complaint: Weakness ED Provider: Mike Palomares Dx/Rx/DC Orders Instructions: ED Anemia, Type Not Specified (Adult) Prescriptions: No Action pantoprazole 40 mg tablet,delayed release (DR/EC) 40 mg PO DAILY Qty: 30 RF: 3 lorazepam 0.5 MG tablet 0.5 mg PO BID PRN (Reason: Anxiety) RF: 0 metformin 500 MG tablet 500 mg PO BIDCM RF: 0 travoprost [Travatan Z] 1 DROP bottle 1 drp Each Eye QHS RF: 0 levothyroxine 50 MCG tablet 50 mcg PO DAILY RF: 0 hydrocortisone 1 APPLIC cream 1 applic topical BID PRN (Reason: Itching) RF: 0 montelukast 10 MG tablet 10 mg PO QHS RF: 0 azelastine 1 SPRAY aerosol,spray 2 spray NASAL BID RF: 0 levalbuterol HCl [Xopenex Concentrate] 1.25 MG/0.5 ML solution for nebulization 1.25 mg IH Q4H PRN PRN (Reason: Shortness Of Breath) RF: 0 budesonide-formoterol [Symbicort] 1 INHALER inhaler 2 puff inhalation BID RF: 0 benzonatate 100 MG capsule 100 mg PO TID PRN PRN (Reason: Cough) RF: 0 ipratropium bromide 0.5 MG/2.5 ML solution 0.25 mg inhalation TID PRN (Reason: Wheezing) RF: 0 levalbuterol tartrate [Xopenex HFA] 15 GM HFA aerosol inhaler 2 puff inhalation Q4H PRN (Reason: Shortness Of Breath) RF: 0 duloxetine 60 mg capsule,delayed release(DR/EC) 60 mg PO DAILY RF: 0 trazodone 100 mg tablet 100 mg PO QHS RF: 0 pravastatin 20 mg tablet 20 mg PO QHS RF: 0 Eliquis DVT-PE Treat 30D Start 5 mg (74 tabs) tablets,dose pack 5 mg PO DAILY RF: 0 Xifaxan 550 mg Tablet 550 mg PO BID 60 Days Qty: 120 RF: 0 lactulose 20 gram/30 mL Solution 20 g PO BID 30 Days Qty: 1800 RF: 0 omeprazole 40 mg Capsule,Delayed Release(Dr/Ec) 40 mg PO BIDCM 60 Days Qty: 30 RF: 0 Primary Care Provider: Michael Hobson Referrals: Michael Hobson MD [Primary Care Provider] - Disposition Disposition: Home, Self Care
[2022-01-02 20:40] LABS: International Normalized Ratio 1.4; Prothrombin Time (Protime)PT. 16.5 SECONDS (11.7-14.9)
--- NOTE | 2022-01-02 20:41 | RAD_ITS ---
STUDY: X-RAY CHEST REASON FOR EXAM: Female, 81 years old. SOB DUE TO ASTHMA. HX OF GI BLEED AND LIVER CIRRHOSIS TECHNIQUE: Single AP portable view of the chest. COMPARISON: July 30, 2021 FINDINGS: The lungs are clear and expanded. There is no demonstrated pleural abnormality. Normal size heart. Normal mediastinum and cassandra. Normal visualized pulmonary arteries. There is atherosclerotic calcification of the aortic arch with tortuosity. There are diffuse degenerative changes of the visualized thoracic spine. Normal visualized ribs, clavicles, and shoulders. There is no demonstrated abnormality of the visualized soft tissue structures of the upper abdomen. RAD/Chest 1 View IMPRESSION: Degenerative changes, as described above. No demonstrated acute cardiopulmonary process. Electronically Signed: Yo Gallardo MD at 21:43 EST ,
[2022-01-02 22:07] LABS: Bacteria 0 SEEN /hpf (None Seen); Mucous, Urine 0 SEEN /hpf (<or=2+); Red Blood Cells-Urine 0 SEEN /hpf (0-5)
[2022-01-02 22:14] LABS: Color, Urine Yellow (Yellow); Glucose, Dipstick Normal (Normal); Ketone-Dipstick Negative (Negative); Leukocyte Esterase-Dipstick 100 /ul (Negative); Nitrite-Dipstick Negative (Negative); Occult Blood-Urine Negative /ul (Negative); Protein-Dipstick 15 mg/dl (Negative); Specific Gravity, Urine 1.015 (1.002-1.030); Urine Bilirubin Dipstick Negative (Negative); Urine Clarity Clear (Clear); Urine Urobilinogen Normal (Normal)
[2022-01-02 22:26] LABS: AST(SGOT) 20 U/L (15-37); Alanine Aminotransfer ALT/SGPT 18 U/L (13-56); Albumin, Serum 3.6 g/dL (3.2-5.0); Alkaline Phosphatase 56 U/L (45-117); Globulin 4.4 g/dL (2.2-4.2)
[2022-01-02 22:31] LABS: Squamous Epithelial Cells - UA 0-5 SEEN /hpf (5-10); White Blood Cells 0-5 SEEN /hpf (0-5)
--- NOTE | 2022-01-02 23:31 | ED.RN ---
pt c/o headache, aware.
[2022-01-02] MEDS: Acetaminophen 500 MG Tablet 1000 MG PO (23:44)
[2022-01-03] VITALS (18 sets, daily range): BP systolic 147–181; BP diastolic 49–83; PULSE 52–67; RESP 12–18; TEMP 36.4–36.9; O2SAT 94–98; BMI 31.3
--- NOTE | 2022-01-03 00:53 | PCM.HP.STD ---
HPI - General General Date of Admission: 01/03/22 Date of Service: 01/03/22 Chief Complaint: Abnormal blood work - low hemoglobin, shortness of breath HPI Narrative MARIA D SUTTON, is a 81 F who presents with the above. Patient and gone for her outpatient appointment with GI. She had blood work and. Should go home was asked to come to the emergency department. She denied any current melena stools or hematochezia. She admits to seeing melena stools about 2 weeks ago. Complains of dizziness on getting up and with exertion. She is short of breath at rest and with exertion. She attributed to her COPD/asthma. She denied any chest pain or palpitations or leg swelling. In the ED, vitals showed blood pressure 174/60, heart rate 68, temperature 96.5 F, respiratory 16, SPO2 92% on room Chest x-ray showed degenerative changes, no acute cardiopulmonary process. CBCD shows WBC count 7.9, no H 98, platelet count 372. Sodium 143, potassium 3.2, chloride 109, bicarbonate 34, BUN 11, creatinine 1.2, glucose 115, troponin 19. UA is unremarkable. [facility] Medical History Anxiety Arthritis Asthma Chest pain COPD (chronic obstructive pulmonary disease) Depression DVT (deep venous thrombosis) Former smoker GERD (gastroesophageal reflux disease) GI bleed Hypertension Pulmonary embolism Skin cancer Home Medications azelastine 2 spray NASAL BID PRN 04/22/14 [History Last Taken 05/21/14] budesonide-formoterol [Symbicort] 2 puff INHALATION BID 04/22/14 [History Last Taken 10/19/21] hydrocortisone 1 applic TOPICAL BID PRN 04/22/14 [History Last Taken Unknown] levalbuterol HCl [Xopenex Concentrate] 1.25 mg IH Q4H PRN PRN 04/22/14 [History Last Taken 1 Week Ago ~10/15/21] levothyroxine 50 mcg PO DAILY 04/22/14 [History Last Taken 10/22/21] lorazepam 0.5 mg PO BID PRN 04/22/14 [History Last Taken 10/22/21] metformin 500 mg PO BIDCM 04/22/14 [History Last Taken 10/22/21] montelukast 10 mg PO QHS 04/22/14 [History Last Taken 06/13/14] travoprost [Travatan Z] 1 drp EACH EYE QHS 04/22/14 [History Last Taken 10/20/21] benzonatate 100 mg PO TID PRN PRN 06/14/14 [History Last Taken 05/21/14] ipratropium bromide 0.25 mg INHALATION TID PRN 06/14/14 [History Last Taken 1 Week Ago ~10/15/21] levalbuterol tartrate [Xopenex HFA] 2 puff INHALATION Q4H PRN 06/14/14 [History Last Taken 10/21/21] duloxetine 60 mg PO DAILY 07/30/21 [History Last Taken 10/22/21] Eliquis DVT-PE Treat 30D Start 5 mg PO DAILY 10/22/21 [History Last Taken 10/22/21] pravastatin 20 mg PO QHS 10/22/21 [History Last Taken 10/21/21] trazodone 100 mg PO QHS 10/22/21 [History Last Taken 10/21/21] lactulose 20 g PO BID 30 Days #1800 ml 10/25/21 [Rx Last Taken Unknown] omeprazole 40 mg PO BIDCM 60 Days #30 cap 10/25/21 [Rx Last Taken 10/22/21] rifaximin [Xifaxan] 550 mg PO BID 60 Days #120 tab 10/25/21 [Rx Last Taken Unknown] pantoprazole 40 mg tablet,delayed release 40 mg PO DAILY #30 tab 11/21/21 [Rx Last Taken Unknown] lisinopril 40 mg DAILY 01/03/22 [History Last Taken Unknown] Allergy/AdvReac Type Severity Reaction Status Date / Time bacitracin Allergy Rash Verified 10/22/21 13:14 [From Neosporin ([id number])] bacitracin zinc Allergy Rash Verified 10/22/21 13:14 [From Neosporin ([id number])] diclofenac [Diclofenac] Allergy Unknown Verified 10/22/21 13:14 dicyclomine Allergy Unknown Verified 10/22/21 13:14 gabapentin Allergy Unknown Verified 10/22/21 13:14 hyoscyamine sulfate Allergy Unknown Verified 10/22/21 13:14 [From Levbid] metronidazole [From Flagyl] Allergy Unknown Verified 10/22/21 13:14 neomycin sulfate Allergy Rash Verified 10/22/21 13:14 [From Neosporin ([id number])] oxaprozin [From Daypro] Allergy Itching Verified 10/22/21 13:14 polymyxin B Allergy Rash Verified 10/22/21 13:14 [From Neosporin ([id number])] polymyxin B sulfate Allergy Rash Verified 10/22/21 13:14 [From Polysporin] propoxyphene HCl Allergy Unknown Verified 10/22/21 13:14 [From Darvon] atorvastatin calcium AdvReac muscle Verified 10/22/21 13:14 [From Lipitor] aches shellfish derived AdvReac vomitting Verified 10/22/21 13:14 Family History Other Colon cancer Hypertension Surgical History H/O: hysterectomy Social History household members: none Smoking Status: Former smoker substance use type: does not use ROS ROS Narrative Constitutional: Reports: Malaise, Weakness, Fatigue. Denies: Anorexia, Chills, Fever, Night Sweats, Weight Change Eyes: Denies: Blurred vision, Cataracts, Conjunctivae Inflammation, Pain, Redness, Vision Change HEENT: Denies: Difficulty Hearing, Difficulty Swallowing, Head Aches, Hearing Changes, Sinus Congestion, Sinus Drainage Cardiovascular: Complains of lightheadedness when she gets tired denies: Chest Pain, Orthopnea, Palpitations Respiratory: Admits to shortness of breath at rest and with exertion denies: Cough,Sputum production Gastrointestinal: Denies: Abdominal Pain, Nausea, Vomiting Genitourinary: Denies: Dysuria Musculoskeletal: Denies: Joint Pain, Joint stiffness, Joint swelling, Joint Tenderness Skin: Denies: Rash, Wounds Neurological: Denies: Numbness, Tingling, Focal weakness Vital Signs Vital Signs Vital Signs: 01/02/22 18:22 01/02/22 19:47 01/02/22 20:43 Temperature 96.5 F L Temperature Source Temporal Pulse Rate 69 65 60 Respiratory Rate 18 18 Blood Pressure 174/60 H 113/84 H 161/55 H Blood Pressure Mean 98 93 90 Pulse Ox 92 98 97 Oxygen Delivery Method Room Air Room Air Room Air 01/02/22 21:40 01/02/22 21:46 01/02/22 21:50 Temperature 97.5 F L 97.7 F L Temperature Source Temporal Temporal Pulse Rate 59 L 62 60 Respiratory Rate 13 18 18 Blood Pressure 160/64 H 164/56 H 165/56 H Blood Pressure Mean 96 92 92 Pulse Ox 97 95 94 Oxygen Delivery Method Room Air Room Air Room Air 01/02/22 22:00 01/02/22 23:20 01/02/22 23:26 Temperature 97.7 F L 97.8 F 97.8 F Temperature Source Temporal Temporal Temporal Pulse Rate 61 59 L 63 Respiratory Rate 16 16 21 H Blood Pressure 164/56 H 172/66 H 172/66 H Blood Pressure Mean 92 101 101 Pulse Ox 99 97 97 Oxygen Delivery Method Room Air Room Air Room Air 01/02/22 23:41 Temperature 97.5 F L Temperature Source Temporal Pulse Rate 58 L Respiratory Rate 21 H Blood Pressure 172/66 H Blood Pressure Mean 101 Pulse Ox 97 Oxygen Delivery Method Room Air Weight Weight: 68 kg Body Mass Index (BMI) 30.2 Physical Exam Narrative Physical exam: General: Alert, Oriented x3, Cooperative, No apparent distress, Well developed HEENT: Atraumatic Oral: Moist Mucosa Neck: Supple Lungs: Clear to auscultation Cardiovascular: HS I+II, regular, no murmurs Abdomen: Bowel Sounds Present, Soft, Non Tender Extremities: No edema Results Lab / Micro Data Result Diagrams: 01/02/22 18:50 01/02/22 18:50 Labs: Laboratory Results - last 24 hr 01/02/22 18:50: WBC 7.1, RBC 2.84 L, Hgb 6.8 L, Hct 23.2 L, MCV 81.7, MCH 23.9 L, MCHC 29.3 L, RDW Std Deviation 50.6 H, RDW Coeff of Naina 17.0 H, Plt Count 372, MPV 9.6, Immature Gran % (Auto) 0.300, Neut % (Auto) 67.7, Lymph % (Auto) 23.0, [place] % (Auto) 6.4, Eos % (Auto) 2.2, Baso % (Auto) 0.4, Absolute Neuts (auto) 4.8, Absolute Lymphs (auto) 1.64, Nucleated RBC % 0 01/02/22 18:50: PT 16.5 H, INR 1.4 01/02/22 18:50: Blood Type A POSITIVE, Antibody Screen NEGATIVE, Crossmatch See Detail 01/02/22 18:50: Sodium 143, Potassium 3.2 L, Chloride 109 H, Carbon Dioxide 24.0, Anion Gap 10, BUN 11, Creatinine 1.20 H, Estim Creat Clear Calc 40.81, Est GFR (MDRD) Af Amer 56 L, Est GFR (MDRD) Non-Af 46 L, BUN/Creatinine Ratio 9.2 L, Glucose 115 H, Calcium 8.9, Troponin I High Sens 19 01/02/22 18:50: Total Bilirubin 0.20, Direct Bilirubin 0.10, AST 20, ALT 18, Alkaline Phosphatase 56, Total Protein 8.0, Albumin 3.6, Globulin 4.4 H 01/02/22 21:45: Urine Color Yellow, Urine Clarity Clear, Urine pH 6.0, Ur Specific [place] 1.015, Urine Protein 15 H, Urine Glucose (UA) Normal, Urine Ketones Negative, Urine Occult Blood Negative, Urine Nitrite Negative, Urine Bilirubin Negative, Urine Urobilinogen Normal, Ur Leukocyte Esterase 100 H, Urine RBC 0 SEEN, Urine WBC 0-5 SEEN, Ur Squamous Epith Cells 0-5 SEEN, Urine Bacteria 0 SEEN, Urine Mucus 0 SEEN Micro: Microbiology 01/02/22 20:38 Stool Stool Occult Blood (JULY) - Final Radiology Impression Chest X-Ray 01/02/22 20:41 IMPRESSION: Degenerative changes, as described above. No demonstrated acute cardiopulmonary process. Electronically Signed: Yo Gallardo MD at 21:43 EST Reading Location ID and State: [address] [place] [address] , Service support , Assessment & Plan Assessment/Plan (1) GI bleed: QUALIFIERS: GI bleed type/associated pathology: unspecified gastrointestinal hemorrhage type Qualified Code(s): K92.2 - Gastrointestinal hemorrhage, unspecified PLAN: 1. Acute severe anemia likely secondary to acute GI bleed, no current melena or hematemesis seen Patient admitted with 6.8 hemoglobin, transfuse 2 units of packed RBCs Colonoscopy on was a suboptimal prep, showed severe dilated sclerosis in the rectosigmoid, descending and transverse colon. 5 mm polyp was removed Admit to PCU, repeat blood work in a.m., IV PPI twice daily, clear liquid diet for now GI consult 2. Liver cirrhosis, not in an acute decompensated state Continue lactulose, rifaximin 3. Hypertensive urgency, blood pressures well controlled, continue lisinopril, hydralazine as needed 4. Type II DM, blood sugar stable, hold Metformin, continue with insulin sliding scale blood glucose checks 5. Rest of her chronic medical conditions include anxiety/depression/hypothyroidism/hyperlipidemia remained stable Home med list reviewed?continue on levothyroxine, montelukast, pravastatin, budesonide 6. DVT prophylaxis?SCDs Charges/Coding Visit Charges Inpatient E&M: 36081 Init Hosp L3
[2022-01-03] MEDS: Potassium Chloride Oral Tablet 20 MEQ 40 MEQ PO (01:07)
[2022-01-03 06:40] LABS: Absolute Lymphocyte Count 1.81 X10^3/uL (0.83-4.51); Absolute Neutrophil Count 3.5 X10^3/uL (2.0-7.7); Basophil# 0.03 X10^3/uL; Basophil% 0.5 % (0-1); Eosinophil# 0.25 X10^3/uL; Eosinophils% 4.1 % (0-5); Hematocrit 27.2 % (37-47); Hemoglobin 8.6 g/dL (12.0-15.0); Lymphocyte # 1.81 X10^3/ul (0.83-4.51); Lymphocyte % 29.6 % (19-41); Mean Corp Hgb Conc 31.6 g/dL (32-36); Mean Corpuscular Hgb 25.9 pg (27.0-32.0); Mean Corpuscular Volume 81.9 fL (81-99); Mean Platelet Vol. 9.4 fl (6.2-12.0); Monocyte# 0.51 X10^3/uL; Monocyte% 8.3 % (0-10); NRBC Flagged by Analyzer 0 % (0-5); Neutrophil % 57.2 % (47-70); Platelet Count 263 K/mm3 (150-450); RBC Distribution Width CV 15.9 % (11.6-14.6); RBC Distribution Width SD 47.9 fl (35.1-43.9); Red Blood Count 3.32 M/mm3 (4.2-5.4); White Blood Count 6.1 K/mm3 (4.4-11.0)
[2022-01-03] MEDS: Levothyroxine 50 MCG Tablet PO (06:48)
[2022-01-03 07:01] LABS: Bedside Glucose 107 mg/dL (70-110)
[2022-01-03 07:07] LABS: ALB/GLOB Ratio 0.8 RATIO (0.9-2.4); AST(SGOT) 18 U/L (15-37); Alanine Aminotransfer ALT/SGPT 17 U/L (13-56); Albumin, Serum 2.9 g/dL (3.2-5.0); Alkaline Phosphatase 48 U/L (45-117); Anion Gap 5 (5-15); BUN 11 mg/dL (7-18); BUN/Creat Ratio 11.4 RATIO (10-20); Calcium,Total 8.7 mg/dL (8.5-10.1); Chloride 110 mmol/L (98-107); Creatinine, Serum 0.97 mg/dL (0.55-1.02); EST Glomerular Filtration Rate 59 mL/min (>60); Est Glom Filt Rate - Afr Amer 71 mL/min (>60); Estimated Creatinine Clearance 53.08 ml/min; Globulin 3.8 g/dL (2.2-4.2); Glucose 93 mg/dL (74-106); Protein, Total 6.7 g/dL (6.4-8.2); Sodium Level 142 mmol/L (136-145)
[2022-01-03] MEDS: Albuterol 2.5 MG/3 ML VIAL.NEB. INHALATION ×3 (07:38→19:02)
[2022-01-03] MEDS: Budesonide Respules 0.5 MG/2 ML AMPUL.NEB. INHALATION ×2 (07:38→19:02)
[2022-01-03] MEDS: DULoxetine Hcl 60 MG Capsule PO (08:52)
[2022-01-03] MEDS: Lactulose 20 GM/30 ML UDC PO ×2 (08:52→22:20)
[2022-01-03] MEDS: Pantoprazole Sodium 40 MG Tablet PO ×2 (08:52→16:28)
[2022-01-03] MEDS: rifAXIMin 550 MG Tablet PO ×2 (08:52→22:19)
[2022-01-03] MEDS: Lisinopril 40 MG Tablet PO (08:55)
--- NOTE | 2022-01-03 11:10 | CASEMGMT ---
RN CM Face to Face with patient for initial transition planning/care coordination assessment. RN CM introduced self and role at [facility]. Patient lying in bed, alert and oriented. Patient willing to participate in assessment and is able to answer all questions appropriately. Care providers, pharmacy, and demographics verified. Patient wishes to discharge home, denies need for home health at this time. Patient states she has no further needs or concerns at this time. CM to follow for discharge planning needs that may arise. PCP: Joce Specialists: Friend, CODY Preferred [facility]acy: [facility] Insurance: Andreea SHAH Prescription Benefit: yes Living Will/HPOA: none LNOK: JAMIE loco Living Arrangements: Patient lives alone in a mobile home with 5 steps and railing to enter the home. Patient states she is independent at home. Patient has been ambulating in room independently. Transportation: self, son, JAMIE DME/HHC: Patient states she has cane, crutches, walker, and wheelchair at home but does not need them. Patient denies previous HHC or SNF. Disposition Plan: Patient to discharge home with family support and follow-up plans in place. Nery GLOVER, RN, CM
--- NOTE | 2022-01-03 11:55 | PN.HOSP_ITS ---
Documented by User: Sixto CRUZ 01/03/22 13:08 Subjective Subjective Patient is a 81-year-old female comfortably resting in bed, alert and orient x3. Patient does report dark melanotic stools, but denies any hematemesis or hematochezia. Denies development of any new symptoms overnight. Does not appea r in acute distress. Objective Data Objective Data Vital Signs: Vital Signs Temp Pulse Resp BP Pulse Ox 98.5 F 57 L 16 154/51 H 95 01/03/22 08:47 01/03/22 08:47 01/03/22 08:47 01/03/22 08:47 01/03/22 08:47 Oxygen Delivery Method Room Air Weight: 157 lb 10.088 oz Body Mass Index (BMI) 31.3 Intake & Output: Intake and Output for Last 24 Hours 01/01/22 01/02/22 01/03/22 23:59 23:59 23:59 Intake Total 400 / 400 500 / 500 Balance 400 / 400 500 / 500 Lab / Micro Data Result Diagrams: 01/03/22 06:00 01/03/22 06:00 Labs: Laboratory Results - last 24 hr 01/02/22 18:50: WBC 7.1, RBC 2.84 L, Hgb 6.8 L, Hct 23.2 L, MCV 81.7, MCH 23.9 L , MCHC 29.3 L, RDW Std Deviation 50.6 H, RDW Coeff of Naina 17.0 H, Plt Count 372, MPV 9.6, Immature Gran % (Auto) 0.300, Neut % (Auto) 67.7, Lymph % (Auto) 23.0, Wetzel % (Auto) 6.4, Eos % (Auto) 2.2, Baso % (Auto) 0.4, Absolute Neuts (auto) 4.8, Absolute Lymphs (auto) 1.64, Nucleated RBC % 0 01/02/22 18:50: PT 16.5 H, INR 1.4 01/02/22 18:50: Blood Type A POSITIVE, Antibody Screen NEGATIVE, Crossmatch See Detail 01/02/22 18:50: Sodium 143, Potassium 3.2 L, Chloride 109 H, Carbon Dioxide 24.0, Anion Gap 10, BUN 11, Creatinine 1.20 H, Estim Creat Clear Calc 40.81, Est GFR (MDRD) Af Amer 56 L, Est GFR (MDRD) Non-Af 46 L, BUN/Creatinine Ratio 9.2 L, Glucose 115 H, Calcium 8.9, Troponin I High Sens 19 01/02/22 18:50: Total Bilirubin 0.20, Direct Bilirubin 0.10, AST 20, ALT 18, Alkaline Phosphatase 56, Total Protein 8.0, Albumin 3.6, Globulin 4.4 H 01/02/22 21:45: Urine Color Yellow, Urine Clarity Clear, Urine pH 6.0, Ur Specific [place] 1.015, Urine Protein 15 H, Urine Glucose (UA) Normal, Urine Ketones Negative, Urine Occult Blood Negative, Urine Nitrite Negative, Urine Bilirubin Negative, Urine Urobilinogen Normal, Ur Leukocyte Esterase 100 H, Urine RBC 0 SEEN, Urine WBC 0-5 SEEN, Ur Squamous Epith Cells 0-5 SEEN, Urine Bacteria 0 SEEN, Urine Mucus 0 SEEN 01/03/22 06:00: WBC 6.1, RBC 3.32 L, Hgb 8.6 L, Hct 27.2 L, MCV 81.9, MCH 25.9 L , MCHC 31.6 L D, RDW Std Deviation 47.9 H, RDW Coeff of Naina 15.9 H, Plt Count 263, MPV 9.4, Immature Gran % (Auto) 0.300, Neut % (Auto) 57.2, Lymph % (Auto) 29.6, Wetzel % (Auto) 8.3, Eos % (Auto) 4.1, Baso % (Auto) 0.5, Absolute Neuts (auto) 3.5, Absolute Lymphs (auto) 1.81, Nucleated RBC % 0 01/03/22 06:00: Sodium 142, Potassium 4.0, Chloride 110 H, Carbon Dioxide 27.0, Anion Gap 5, BUN 11, Creatinine 0.97, Estim Creat Clear Calc 53.08, Est GFR (MDRD) Af Amer 71, Est GFR (MDRD) Non-Af 59 L, BUN/Creatinine Ratio 11.4, Glucose 93, Calcium 8.7, Total Bilirubin 0.90, AST 18, ALT 17, Alkaline Phosphatase 48, Total Protein 6.7, Albumin 2.9 L, Globulin 3.8, Albumin/Globulin Ratio 0.8 L 01/03/22 06:37: POC Glucose 107 Micro: Microbiology 01/02/22 20:38 Stool Stool Occult Blood (JULY) - Final Radiography Diagnostic Testing: Radiology Impression Chest X-Ray 01/02/22 20:41 IMPRESSION: Degenerative changes, as described above. No demonstrated acute cardiopulmonary process. Electronically Signed: Yo Gallardo MD at 21:43 EST Reading Location ID and State: [address] [place] [address] , Service support , Physical Exam Const alert, oriented x3 and no apparent distress HEENT head/scalp atraumatic and moist oral mucous membranes Head and Scalp: normocephalic Eyes PERRL and conjunctivae normal Neck no lymphadenopathy and no JVD Resp normal respiratory effort, no retractions and no use of accessory muscles Cardio regular rhythm and no JVD Rate: bradycardia GI normal to inspection, nondistended, normoactive bowel sounds Extremity normal to inspection Skin no rashes or lesions noted Neuro CN's II-XII intact bilaterally Psych affect normal Assessment & Plan Assessment/Plan (1) Anemia due to acute blood loss: (2) GI bleed: PLAN: Day 1 Discharge planning: Current plan is for patient to discharge home. 1) acute on chronic anemia secondary to acute GI bleed Hemoglobin currently 8.6 after transfusion of 2 units of PRBCs. Baseline appears around 9. 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 Patient recently had a colonoscopy in October which showed severe diverticulosis in the recto sigmoid colon, sigmoid colon, transverse colon and descending colon. There was no evidence of diverticular bleeding, although erythema was noted, one 5 mm polyp was removed in the sigmoid colon. GI consult obtained in the ED, to follow later on today, continue oral PPI, hold Eliquis. 2) cirrhosis Transaminases not elevated. Continue lactulose and rifaximin. 3) DM2 Hold Metformin, continue Accu-Cheks with sliding scale insulin. 4) hypothyroidism Continue Synthroid. 5) COPD Not in acute exacerbation, continue montelukast, bronchodilators and budesonide. 6) hyperlipidemia Continue statin. 7) HTN Not within goal, continue lisinopril. 8) depression/anxiety Continue Cymbalta. 9) history of DVT Patient suffered DVT in September 2021, on Eliquis for anticoagulation, hold Eliquis secondary to #1. SCDs ordered. DVT prophylaxis -chemoprophylaxis not indicated, SCDs ordered. Patient seen by Sixto Golden PA-C, under the supervision of Dr. Ferguson. Time spent on patient care: 10 minutes. Documented by User: Dr. Dilip Ferguson, DO 01/03/22 13:29 Subjective Subjective No further hematochezia. Objective Data Lab / Micro Data Result Diagrams: 01/03/22 06:00 01/03/22 06:00 Physical Exam Const alert and no apparent distress Resp normal respiratory effort, no retractions, no use of accessory muscles and clear to auscultation bilaterally Cardio regular rate, regular rhythm, S1 normal heart sound and S2 normal heart sound GI normal to inspection, nondistended, normoactive bowel sounds, soft to palpation, non-tender and non-distended Extremity normal to inspection Assessment & Plan Assessment/Plan (1) Anemia due to acute blood loss: (2) GI bleed: PLAN: Patient seen and examined independently. Data and vitals reviewed. I agree with the above note by the physician customer service assistant. 1. Acute blood loss anemia Secondary to GI bleed Status post 2 units packed red blood cells Hemoglobin 6.6 on admission now 8.6 2. GI bleed GI consult 3. History of a DVT History of in the right tibial vein. Given the bleeding, the fact that the below the knee, would not recommend any further anticoagulation at this time. Greater than 15 minutes of which greater than for percent of time was discussing with patient at bedside. Charges/Coding Procedures Hospitalists Procedures: Other Procedure - See Report (Nonbillable rounding. Patient admi tted after midnight.)
[2022-01-03 11:56] LABS: Bedside Glucose 135 mg/dL (70-110)
[2022-01-03 16:35] LABS: Bedside Glucose 110 mg/dL (70-110)
--- NOTE | 2022-01-03 21:26 | EX.PCM.CON.G ---
HPI Consult Data Date of Consult: 01/03/22 HPI Narrative HPI Narrative: MARIA D SUTTON, is a 81 F who presents as an outpatient and after her hemoglobin had dropped 3 units since being discharged from the hospital on 10/25/2021. Her previous admission to the hospital for acute GI bleed have revealed esophageal varices, portal gastropathy and gastritis on her upper endoscopy. She had a colonoscopy but it was severely poor prep in there was 1 polyp removed from the colon. There was no evidence of signs of acute GI bleeding. It was assumed that her GI bleeding was coming from severe portal gastropathy. She was restarted on Eliquis therapy after her discharge hemoglobin was 9.9. She was seen in office recently and was discovered to have a hemoglobin of 6.6. She said that she had 3 black bowel movements over the last several weeks. 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 She has not had any more signs of bleeding after being off of the Eliquis. She was on Eliquis due to history of DVT and PE. She does not have a good understanding of what cirrhosis is and her risk of GI bleeding on anticoagulation. COUNT INCLUDES THE [facility] Medical History (Updated 01/03/22 @ 12:59 by Sixto CRUZ) Anxiety Arthritis Asthma Chest pain COPD (chronic obstructive pulmonary disease) Depression DVT (deep venous thrombosis) Former smoker GERD (gastroesophageal reflux disease) GI bleed Hypertension Pulmonary embolism Skin cancer Home Medications azelastine 2 spray NASAL BID PRN 04/22/14 [History Last Taken 05/21/14] budesonide-formoterol [Symbicort] 2 puff INHALATION BID 04/22/14 [History Last Taken 10/19/21] hydrocortisone 1 applic TOPICAL BID PRN 04/22/14 [History Last Taken Unknown] levalbuterol HCl [Xopenex Concentrate] 1.25 mg IH Q4H PRN PRN 04/22/14 [History Last Taken 1 Week Ago ~10/15/21] levothyroxine 50 mcg PO DAILY 04/22/14 [History Last Taken 10/22/21] lorazepam 0.5 mg PO BID PRN 04/22/14 [History Last Taken 10/22/21] metformin 500 mg PO BIDCM 04/22/14 [History Last Taken 10/22/21] montelukast 10 mg PO QHS 04/22/14 [History Last Taken 06/13/14] travoprost [Travatan Z] 1 drp EACH EYE QHS 04/22/14 [History Last Taken 10/20/21] benzonatate 100 mg PO TID PRN PRN 06/14/14 [History Last Taken 05/21/14] ipratropium bromide 0.25 mg INHALATION TID PRN 06/14/14 [History Last Taken 1 Week Ago ~10/15/21] levalbuterol tartrate [Xopenex HFA] 2 puff INHALATION Q4H PRN 06/14/14 [History Last Taken 10/21/21] duloxetine 60 mg PO DAILY 07/30/21 [History Last Taken 10/22/21] Eliquis DVT-PE Treat 30D Start 5 mg PO DAILY 10/22/21 [History Last Taken 10/22/21] pravastatin 20 mg PO QHS 10/22/21 [History Last Taken 10/21/21] trazodone 100 mg PO QHS 10/22/21 [History Last Taken 10/21/21] lactulose 20 g PO BID 30 Days #1800 ml 10/25/21 [Rx Last Taken Unknown] omeprazole 40 mg PO BIDCM 60 Days #30 cap 10/25/21 [Rx Last Taken 10/22/21] rifaximin [Xifaxan] 550 mg PO BID 60 Days #120 tab 10/25/21 [Rx Last Taken Unknown] pantoprazole 40 mg tablet,delayed release 40 mg PO DAILY #30 tab 11/21/21 [Rx Last Taken Unknown] lisinopril 40 mg DAILY 01/03/22 [History Last Taken Unknown] Allergy/AdvReac Type Severity Reaction Status Date / Time bacitracin Allergy Rash Verified 10/22/21 13:14 [From Neosporin ([id number])] bacitracin zinc Allergy Rash Verified 10/22/21 13:14 [From Neosporin ([id number])] diclofenac [Diclofenac] Allergy Unknown Verified 10/22/21 13:14 dicyclomine Allergy Unknown Verified 10/22/21 13:14 gabapentin Allergy Unknown Verified 10/22/21 13:14 hyoscyamine sulfate Allergy Unknown Verified 10/22/21 13:14 [From Levbid] metronidazole [From Flagyl] Allergy Unknown Verified 10/22/21 13:14 neomycin sulfate Allergy Rash Verified 10/22/21 13:14 [From Neosporin ([id number])] oxaprozin [From Daypro] Allergy Itching Verified 10/22/21 13:14 polymyxin B Allergy Rash Verified 10/22/21 13:14 [From Neosporin ([id number])] polymyxin B sulfate Allergy Rash Verified 10/22/21 13:14 [From Polysporin] propoxyphene HCl Allergy Unknown Verified 10/22/21 13:14 [From Darvon] atorvastatin calcium AdvReac muscle Verified 10/22/21 13:14 [From Lipitor] aches shellfish derived AdvReac vomitting Verified 10/22/21 13:14 Family History Other Colon cancer Hypertension Surgical History H/O: hysterectomy Social History household members: none Smoking Status: Former smoker substance use type: does not use ROS Gastrointestinal Gastrointestinal: Reports melena Physical Exam Const alert General Appearance: cooperative Orientation / Consciousness: oriented to person HEENT hearing grossly normal bilaterally Head and Scalp: normal to inspection Face and Sinus: face symmetric Nose: external nose normal Mouth: oral and palatal mucosa normal Eyes conjunctivae normal General Eye: normal appearance of both eyes Neck full ROM General: normal visual inspection Lymph Lymphatic: no lymphadenopathy noted Chest inspection of chest normal and palpation of chest normal Chest: symmetrical chest wall rise Resp normal respiratory effort Effort and Inspection: able to speak in complete sentences Cardio regular rate GI non-distended Percussion: normal to percussion Rectal Exam: deferred Neuro Speech: speech normal Gait (Neuro): normal gait Lab / Micro Data Result Diagrams: 01/03/22 06:00 01/03/22 06:00 Labs: Laboratory Results - last 24 hr 01/02/22 18:50: Blood Type A POSITIVE, Antibody Screen NEGATIVE, Crossmatch See Detail 01/02/22 18:50: Total Bilirubin 0.20, Direct Bilirubin 0.10, AST 20, ALT 18, Alkaline Phosphatase 56, Total Protein 8.0, Albumin 3.6, Globulin 4.4 H 01/02/22 21:45: Urine Color Yellow, Urine Clarity Clear, Urine pH 6.0, Ur Specific [place] 1.015, Urine Protein 15 H, Urine Glucose (UA) Normal, Urine Ketones Negative, Urine Occult Blood Negative, Urine Nitrite Negative, Urine Bilirubin Negative, Urine Urobilinogen Normal, Ur Leukocyte Esterase 100 H, Urine RBC 0 SEEN, Urine WBC 0-5 SEEN, Ur Squamous Epith Cells 0-5 SEEN, Urine Bacteria 0 SEEN, Urine Mucus 0 SEEN 01/03/22 06:00: WBC 6.1, RBC 3.32 L, Hgb 8.6 L, Hct 27.2 L, MCV 81.9, MCH 25.9 L, MCHC 31.6 L D, RDW Std Deviation 47.9 H, RDW Coeff of Naina 15.9 H, Plt Count 263, MPV 9.4, Immature Gran % (Auto) 0.300, Neut % (Auto) 57.2, Lymph % (Auto) 29.6, [place] % (Auto) 8.3, Eos % (Auto) 4.1, Baso % (Auto) 0.5, Absolute Neuts (auto) 3.5, Absolute Lymphs (auto) 1.81, Nucleated RBC % 0 01/03/22 06:00: Sodium 142, Potassium 4.0, Chloride 110 H, Carbon Dioxide 27.0, Anion Gap 5, BUN 11, Creatinine 0.97, Estim Creat Clear Calc 53.08, Est GFR (MDRD) Af Amer 71, Est GFR (MDRD) Non-Af 59 L, BUN/Creatinine Ratio 11.4, Glucose 93, Calcium 8.7, Total Bilirubin 0.90, AST 18, ALT 17, Alkaline Phosphatase 48, Total Protein 6.7, Albumin 2.9 L, Globulin 3.8, Albumin/Globulin Ratio 0.8 L 01/03/22 06:37: POC Glucose 107 01/03/22 11:53: POC Glucose 135 H 01/03/22 16:25: POC Glucose 110 Micro: Microbiology 01/02/22 20:38 Stool Stool Occult Blood (JULY) - Final Radiology Impression Chest X-Ray 01/02/22 20:41 IMPRESSION: Degenerative changes, as described above. No demonstrated acute cardiopulmonary process. Electronically Signed: Yo Gallardo MD at 21:43 EST Reading Location ID and State: [facility] / [place] , Service support , Assessment & Plan Assessment/Plan (1) Cirrhosis: PLAN: She is not showing any signs of decompensated cirrhosis at this time except for GI bleeding. She is not showing any signs of jaundice, ascites or encephalopathy. At this time her meld is very low at 8-10. Her platelets are elevated, but that it expect that some of that is reactive thrombocytosis secondary to GI blood loss. Her heart rate is appropriate with medication and she is not showing any signs of ascites. She is having normal bowel movements. I would check an ammonia level and if that is appropriate she can probably be DC'd to home with outpatient follow-up. (2) GI bleed: PLAN: I would not restart her on anticoagulation at this time due to her high risk of GI bleeding in the setting of cirrhosis. She can have an outpatient EGD with capsule endoscopy if her hemoglobin stays stable. Charges/Coding Visit Charges Inpatient E&M: 07988 Init Hosp L2
[2022-01-03] MEDS: traZODone 100 MG Tablet PO (22:19)
[2022-01-03] MEDS: Montelukast 10 MG Tablet PO (22:19)
[2022-01-03] MEDS: Pravastatin 20 MG Tablet PO (22:20)
[2022-01-03 22:26] LABS: Bedside Glucose 126 mg/dL (70-110)
[2022-01-04 03:00] VITALS: PULSE 63
[2022-01-04 04:10] VITALS: BP 142/46; PULSE 61; RESP 16; TEMP 36.8; O2SAT 97
[2022-01-04 06:40] LABS: Absolute Lymphocyte Count 1.49 X10^3/uL (0.83-4.51); Basophil# 0.03 X10^3/uL; Basophil% 0.5 % (0-1); Eosinophil# 0.21 X10^3/uL; Eosinophils% 3.3 % (0-5); Hematocrit 29.1 % (37-47); Hemoglobin 9.4 g/dL (12.0-15.0); Lymphocyte # 1.49 X10^3/ul (0.83-4.51); Lymphocyte % 23.7 % (19-41); Mean Corp Hgb Conc 32.3 g/dL (32-36); Mean Corpuscular Hgb 26.4 pg (27.0-32.0); Mean Corpuscular Volume 81.7 fL (81-99); Mean Platelet Vol. 9.5 fl (6.2-12.0); Monocyte# 0.52 X10^3/uL; Monocyte% 8.3 % (0-10); NRBC Flagged by Analyzer 0 % (0-5); Neutrophil # 4.01 X10^3/uL (2.7-7.7); Neutrophil % 63.7 % (47-70); Platelet Count 299 K/mm3 (150-450); RBC Distribution Width CV 16.5 % (11.6-14.6); RBC Distribution Width SD 49.5 fl (35.1-43.9); Red Blood Count 3.56 M/mm3 (4.2-5.4); White Blood Count 6.3 K/mm3 (4.4-11.0)
[2022-01-04] MEDS: Levothyroxine 50 MCG Tablet PO (06:49)
[2022-01-04 06:56] LABS: Bedside Glucose 119 mg/dL (70-110)
[2022-01-04 07:04] VITALS: PULSE 60; RESP 16
[2022-01-04] MEDS: Budesonide Respules 0.5 MG/2 ML AMPUL.NEB. INHALATION (07:04)
[2022-01-04] MEDS: Albuterol 2.5 MG/3 ML VIAL.NEB. INHALATION (07:04)
[2022-01-04 07:15] LABS: Anion Gap 7 (5-15); BUN 8 mg/dL (7-18); BUN/Creat Ratio 8.1 RATIO (10-20); Calcium,Total 9.5 mg/dL (8.5-10.1); Chloride 109 mmol/L (98-107); Creatinine, Serum 0.99 mg/dL (0.55-1.02); EST Glomerular Filtration Rate 58 mL/min (>60); Est Glom Filt Rate - Afr Amer 70 mL/min (>60); Estimated Creatinine Clearance 49.83 ml/min; Glucose 108 mg/dL (74-106); Potassium 3.9 mmol/L (3.5-5.1); Sodium Level 143 mmol/L (136-145)
[2022-01-04 07:19] VITALS: PULSE 58
[2022-01-04 08:19] VITALS: BP 148/54; PULSE 62; RESP 12; TEMP 36.6; O2SAT 92
[2022-01-04] MEDS: Pantoprazole Sodium 40 MG Tablet PO (08:22)
[2022-01-04] MEDS: Lisinopril 40 MG Tablet PO (08:23)
[2022-01-04] MEDS: Lactulose 20 GM/30 ML UDC PO (08:23)
[2022-01-04] MEDS: DULoxetine Hcl 60 MG Capsule PO (08:23)
[2022-01-04] MEDS: rifAXIMin 550 MG Tablet PO (08:23)
[2022-01-04] MEDS: Glucerna Shake 120 ML LIQUID PO (08:27)
--- NOTE | 2022-01-04 09:56 | PCM.DC ---
Discharge Instructions Diet Discharge Diet: No restrictions Activity Discharge Activity: Return to Normal Activity Weight Bearing Status: Weight bearing as tolerated Dressing / Incision Call your doctor if you observe: Fever of 101 or Higher, Numbness or Tingling, Shortness of breath, Dizziness, Chest pain, Increased palpitations (irregular heartbeat) and Calf discomfort Follow Up Care Please Follow Up With: Primary care provider When: Within the next two weeks. Test Results: Test results from this visit will be discussed in further detail at your follow-up appointment, if applicable. Discharge Plan Admission Admit Date/Time: 01/03/22 00:47 Primary Reason for Your Visit: GI bleed. Attending Provider: Dilip Ferguson Primary Care Provider: Michael Hobson Instructions Patient Instructions: ED Anemia, Type Not Specified (Adult) Discharge Orders/Prescriptions Prescriptions: Continued pantoprazole 40 mg tablet,delayed release (DR/EC) 40 mg PO DAILY Qty: 30 RF: 3 lorazepam 0.5 MG tablet 0.5 mg PO BID PRN (Reason: Anxiety) RF: 0 metformin 500 MG tablet 500 mg PO BIDCM RF: 0 travoprost [Travatan Z] 1 DROP bottle 1 drp Each Eye QHS RF: 0 levothyroxine 50 MCG tablet 50 mcg PO DAILY RF: 0 hydrocortisone 1 APPLIC cream 1 applic topical BID PRN (Reason: Itching) RF: 0 montelukast 10 MG tablet 10 mg PO QHS RF: 0 azelastine 1 SPRAY aerosol,spray 2 spray NASAL BID PRN (Reason: asthma) RF: 0 levalbuterol HCl [Xopenex Concentrate] 1.25 MG/0.5 ML solution for nebulization 1.25 mg IH Q4H PRN PRN (Reason: Shortness Of Breath) RF: 0 budesonide-formoterol [Symbicort] 1 INHALER inhaler 2 puff inhalation BID RF: 0 benzonatate 100 MG capsule 100 mg PO TID PRN PRN (Reason: Cough) RF: 0 ipratropium bromide 0.5 MG/2.5 ML solution 0.25 mg inhalation TID PRN (Reason: Wheezing) RF: 0 levalbuterol tartrate [Xopenex HFA] 15 GM HFA aerosol inhaler 2 puff inhalation Q4H PRN (Reason: Shortness Of Breath) RF: 0 duloxetine 60 mg capsule,delayed release(DR/EC) 60 mg PO DAILY RF: 0 trazodone 100 mg tablet 100 mg PO QHS RF: 0 pravastatin 20 mg tablet 20 mg PO QHS RF: 0 Xifaxan 550 mg Tablet 550 mg PO BID 60 Days Qty: 120 RF: 0 lactulose 20 gram/30 mL Solution 20 g PO BID 30 Days Qty: 1800 RF: 0 omeprazole 40 mg Capsule,Delayed Release(Dr/Ec) 40 mg PO BIDCM 60 Days Qty: 30 RF: 0 lisinopril 40 mg DAILY RF: 0 Held Eliquis DVT-PE Treat 30D Start 5 mg (74 tabs) tablets,dose pack 5 mg PO DAILY RF: 0 Hold Instructions: Hold until told to resume by Dr. Arellano. Referrals / Follow Up: Sinan Arellano DO [STAFF PHYSICIAN] - Within 2 Weeks (Establish appointment with Dr. Arellano for outpatient follow up and Endoscopy. ) Michael Hobson MD [Primary Care Provider] - Within 2 Weeks Disposition Disposition (needs filled in before D/C Order can be placed): Home, Self Care
[2022-01-04] MEDS: Acetaminophen 325 MG Tablet 650 MG PO (10:23)
--- NOTE | 2022-01-04 11:00 | DS.PCM_ITS ---
Documented by User: Sixto CRUZ 01/04/22 11:07 Providers Date of Admission: 01/03/22 Date of Discharge: 01/04/22 Primary Care Physician: Dr. Michael Hobson MD Reason For Visit: ANEMIA/GI BLEED Diagnosis Discharge Diagnosis (1) Cirrhosis: Status: Acute Code(s): K74.60 - Unspecified cirrhosis of liver (2) GI bleed: Status: Acute Code(s): K92.2 - Gastrointestinal hemorrhage, unspecified Medications at Discharge Home Medications azelastine 2 spray NASAL BID PRN 04/22/14 budesonide-formoterol [Symbicort] 2 puff INHALATION BID 04/22/14 hydrocortisone 1 applic TOPICAL BID PRN 04/22/14 levalbuterol HCl [Xopenex Concentrate] 1.25 mg IH Q4H PRN PRN 04/22/14 levothyroxine 50 mcg PO DAILY 04/22/14 lorazepam 0.5 mg PO BID PRN 04/22/14 metformin 500 mg PO BIDCM 04/22/14 montelukast 10 mg PO QHS 04/22/14 travoprost [Travatan Z] 1 drp EACH EYE QHS 04/22/14 benzonatate 100 mg PO TID PRN PRN 06/14/14 ipratropium bromide 0.25 mg INHALATION TID PRN 06/14/14 levalbuterol tartrate [Xopenex HFA] 2 puff INHALATION Q4H PRN 06/14/14 duloxetine 60 mg PO DAILY 07/30/21 Eliquis DVT-PE Treat 30D Start 5 mg PO DAILY 10/22/21 pravastatin 20 mg PO QHS 10/22/21 trazodone 100 mg PO QHS 10/22/21 Xifaxan 550 mg PO BID 60 Days #120 tab 10/25/21 lactulose 20 g PO BID 30 Days #1800 ml 10/25/21 omeprazole 40 mg PO BIDCM 60 Days #30 cap 10/25/21 pantoprazole 40 mg tablet,delayed release 40 mg PO DAILY #30 tab 11/21/21 lisinopril 40 mg DAILY 01/03/22 Hospital Course Summary of Care Provided Minutes Spent on Discharge: 20 Hospital Course: Patient is a 81-year-old female who was admitted to [facility] on 01/03/2022 for evaluation and management of low hemoglobin and shortness of breath. Course and management as below. 1) acute on chronic anemia secondary to acute GI bleed Hemoglobin currently 9.4, after transfusion of 2 units of PRBCs on 01/03. Baseline appears around 9. 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 Patient was evaluated by GI during admission who assessed patient as stable and advises to holding patient's Eliquis and to obtain outpatient EGD with capsule endoscopy. Patient to follow-up with Dr. Arellano and primary care provider within the next 2 weeks, Eliquis held as above. 2) cirrhosis Patient without jaundice, ascites or encephalopathy at this time. Ammonia level obtained and within normal limits. Transaminases not elevated. Continue lactulose and rifaximin, to follow with Dr. Arellano as above. 3) DM2 Continue home diabetic regimen. 4) hypothyroidism Continue Synthroid. 5) COPD Not in acute exacerbation, continue montelukast, bronchodilators and budesonide. 6) hyperlipidemia Continue statin. 7) HTN Not within goal, continue lisinopril. Follow-up with primary care provider. 8) depression/anxiety Continue Cymbalta. 9) history of DVT Patient suffered DVT in September 2021, on Eliquis for anticoagulation. Eliquis held as above. Patient seen by Sixto Golden PA-C, under the supervision of Dr. Ferguson. Time spent on patient care: 20 minutes. Physical Exam Narrative Patient is a 81-year-old female comfortably resting in bed, alert and orient x3. Patient does reports a mild headache but denies any vision changes or weakness/numbness/tingling. Does not appear in acute distress Const alert, oriented x3 and no apparent distress HEENT normocephalic, head/scalp atraumatic and hearing grossly normal bilaterally Eyes PERRL and conjunctivae normal Neck no lymphadenopathy, supple and no JVD Resp normal respiratory effort, no retractions and no use of accessory muscles Cardio regular rate, regular rhythm, no murmurs and no JVD GI normal to inspection, nondistended, normoactive bowel sounds Extremity normal to inspection Skin no rashes or lesions noted Neuro CN's II-XII intact bilaterally Psych affect normal Weight / BMI Weight Weight: 151 lb 0.266 oz Body Mass Index (BMI) 31.3 ABG / Lab / Microbiology Data Result Diagrams: 01/04/22 05:30 01/04/22 05:30 Laboratory: Laboratory Results - last 24 hr 01/03/22 11:53: POC Glucose 135 H 01/03/22 16:25: POC Glucose 110 01/03/22 22:15: POC Glucose 126 H 01/04/22 05:30: WBC 6.3, RBC 3.56 L, Hgb 9.4 L, Hct 29.1 L, MCV 81.7, MCH 26.4 L , MCHC 32.3, RDW Std Deviation 49.5 H, RDW Coeff of [place] 16.5 H, Plt Count 299, MPV 9.5, Immature Gran % (Auto) 0.500, Neut % (Auto) 63.7, Lymph % (Auto) 23.7, [place] % (Auto) 8.3, Eos % (Auto) 3.3, Baso % (Auto) 0.5, Absolute Neuts (auto) 4.0, Absolute Lymphs (auto) 1.49, Nucleated RBC % 0 01/04/22 05:30: Sodium 143, Potassium 3.9, Chloride 109 H, Carbon Dioxide 27.0, Anion Gap 7, BUN 8, Creatinine 0.99, Estim Creat Clear Calc 49.83, Est GFR (MDR D) Af Amer 70, Est GFR (MDRD) Non-Af 58 L, BUN/Creatinine Ratio 8.1 L, Glucose 108 H, Calcium 9.5 01/04/22 06:48: POC Glucose 119 H 01/04/22 08:52: Ammonia 20.0 Microbiology: Microbiology 01/02/22 20:38 Stool Stool Occult Blood (JULY) - Final D/C Instructions Discharge Diet: No restrictions Weight Bearing Status: Weight bearing as tolerated Call your doctor if you observe: Fever of 101 or Higher, Numbness or Tingling, Shortness of breath, Dizziness, Chest pain, Increased palpitations (irregular heartbeat) and Calf discomfort Please Follow Up With: Primary care provider When: Within the next two weeks. Meaningful Use Info Meaningful Use Diagnoses (Choose all that apply): None applicable Discharge Plan Admission Admit Date/Time: 01/03/22 00:47 Primary Reason for Your Visit: GI bleed. Attending Provider: Dilip Ferguson Primary Care Provider: Michael Hobson Instructions Patient Instructions: ED Anemia, Type Not Specified (Adult) Discharge Orders/Prescriptions Prescriptions: Continued pantoprazole 40 mg tablet,delayed release (DR/EC) 40 mg PO DAILY Qty: 30 RF: 3 lorazepam 0.5 MG tablet 0.5 mg PO BID PRN (Reason: Anxiety) RF: 0 metformin 500 MG tablet 500 mg PO BIDCM RF: 0 travoprost [Travatan Z] 1 DROP bottle 1 drp Each Eye QHS RF: 0 levothyroxine 50 MCG tablet 50 mcg PO DAILY RF: 0 hydrocortisone 1 APPLIC cream 1 applic topical BID PRN (Reason: Itching) RF: 0 montelukast 10 MG tablet 10 mg PO QHS RF: 0 azelastine 1 SPRAY aerosol,spray 2 spray NASAL BID PRN (Reason: asthma) RF: 0 levalbuterol HCl [Xopenex Concentrate] 1.25 MG/0.5 ML solution for nebulization 1.25 mg IH Q4H PRN PRN (Reason: Shortness Of Breath) RF: 0 budesonide-formoterol [Symbicort] 1 INHALER inhaler 2 puff inhalation BID RF: 0 benzonatate 100 MG capsule 100 mg PO TID PRN PRN (Reason: Cough) RF: 0 ipratropium bromide 0.5 MG/2.5 ML solution 0.25 mg inhalation TID PRN (Reason: Wheezing) RF: 0 levalbuterol tartrate [Xopenex HFA] 15 GM HFA aerosol inhaler 2 puff inhalation Q4H PRN (Reason: Shortness Of Breath) RF: 0 duloxetine 60 mg capsule,delayed release(DR/EC) 60 mg PO DAILY RF: 0 trazodone 100 mg tablet 100 mg PO QHS RF: 0 pravastatin 20 mg tablet 20 mg PO QHS RF: 0 Xifaxan 550 mg Tablet 550 mg PO BID 60 Days Qty: 120 RF: 0 lactulose 20 gram/30 mL Solution 20 g PO BID 30 Days Qty: 1800 RF: 0 omeprazole 40 mg Capsule,Delayed Release(Dr/Ec) 40 mg PO BIDCM 60 Days Qty: 30 RF: 0 lisinopril 40 mg DAILY RF: 0 Held Eliquis DVT-PE Treat 30D Start 5 mg (74 tabs) tablets,dose pack 5 mg PO DAILY RF: 0 Hold Instructions: Hold until told to resume by Dr. Arellano. Referrals / Follow Up: Sinan Arellano DO [STAFF PHYSICIAN] - Within 2 Weeks (Establish appointment with Dr. Arellano for outpatient follow up and Endoscopy. ) Michael Hobson MD [Primary Care Provider] - Within 2 Weeks Disposition Disposition (needs filled in before D/C Order can be placed): Home, Self Care Documented by User: Dr. Dilip Ferguson DO 01/04/22 12:18 Providers Date of Admission: 01/03/22 Reason For Visit: ANEMIA/GI BLEED Medications at Discharge Home Medications azelastine 2 spray NASAL BID PRN 04/22/14 budesonide-formoterol [Symbicort] 2 puff INHALATION BID 04/22/14 hydrocortisone 1 applic TOPICAL BID PRN 04/22/14 levalbuterol HCl [Xopenex Concentrate] 1.25 mg IH Q4H PRN PRN 04/22/14 levothyroxine 50 mcg PO DAILY 04/22/14 lorazepam 0.5 mg PO BID PRN 04/22/14 metformin 500 mg PO BIDCM 04/22/14 montelukast 10 mg PO QHS 04/22/14 travoprost [Travatan Z] 1 drp EACH EYE QHS 04/22/14 benzonatate 100 mg PO TID PRN PRN 06/14/14 ipratropium bromide 0.25 mg INHALATION TID PRN 06/14/14 levalbuterol tartrate [Xopenex HFA] 2 puff INHALATION Q4H PRN 06/14/14 duloxetine 60 mg PO DAILY 07/30/21 Eliquis DVT-PE Treat 30D Start 5 mg PO DAILY 10/22/21 pravastatin 20 mg PO QHS 10/22/21 trazodone 100 mg PO QHS 10/22/21 Xifaxan 550 mg PO BID 60 Days #120 tab 10/25/21 lactulose 20 g PO BID 30 Days #1800 ml 10/25/21 omeprazole 40 mg PO BIDCM 60 Days #30 cap 10/25/21 pantoprazole 40 mg tablet,delayed release 40 mg PO DAILY #30 tab 11/21/21 lisinopril 40 mg DAILY 01/03/22 Hospital Course Operations None Procedures None Summary of Care Provided Minutes Spent on Discharge: 32 Hospital Course: Patient seen and examined independently. Data and vitals reviewed. I agree with the above note by the physician assistant plant control operator. This is a 81-year-old female presents with low blood work. Patient was found to have a hemoglobin 6.9. Patient was transfused 2 units packed red blood cells. Patient denied any bleeding but patient was on apixaban for history of a right lower extremity DVT. Reviewing records, patient had a duplex of her lower ex tremities on 09/21/2021 and had a right posterior tibial vein thrombosis. Given the bleeding, her cirrhosis and her anemia treatment is no longer indicated at this time. 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 While she was here she was seen by gastroenterology plan is for repeat colonoscopy but as outpatient. Physical Exam Const alert and no apparent distress Resp normal respiratory effort Cardio regular rate and regular rhythm Extremity normal to inspection ABG / Lab / Microbiology Data Result Diagrams: 01/04/22 05:30 01/04/22 05:30 Discharge Plan Admission Admit Date/Time: 01/03/22 00:47 Primary Reason for Your Visit: GI bleed. Attending Provider: Dilip Ferguson Primary Care Provider: Michael Hobson Instructions Patient Instructions: ED Anemia, Type Not Specified (Adult) Discharge Orders/Prescriptions Prescriptions: Continued pantoprazole 40 mg tablet,delayed release (DR/EC) 40 mg PO DAILY Qty: 30 RF: 3 lorazepam 0.5 MG tablet 0.5 mg PO BID PRN (Reason: Anxiety) RF: 0 metformin 500 MG tablet 500 mg PO BIDCM RF: 0 travoprost [Travatan Z] 1 DROP bottle 1 drp Each Eye QHS RF: 0 levothyroxine 50 MCG tablet 50 mcg PO DAILY RF: 0 hydrocortisone 1 APPLIC cream 1 applic topical BID PRN (Reason: Itching) RF: 0 montelukast 10 MG tablet 10 mg PO QHS RF: 0 azelastine 1 SPRAY aerosol,spray 2 spray NASAL BID PRN (Reason: asthma) RF: 0 levalbuterol HCl [Xopenex Concentrate] 1.25 MG/0.5 ML solution for nebulization 1.25 mg IH Q4H PRN PRN (Reason: Shortness Of Breath) RF: 0 budesonide-formoterol [Symbicort] 1 INHALER inhaler 2 puff inhalation BID RF: 0 benzonatate 100 MG capsule 100 mg PO TID PRN PRN (Reason: Cough) RF: 0 ipratropium bromide 0.5 MG/2.5 ML solution 0.25 mg inhalation TID PRN (Reason: Wheezing) RF: 0 levalbuterol tartrate [Xopenex HFA] 15 GM HFA aerosol inhaler 2 puff inhalation Q4H PRN (Reason: Shortness Of Breath) RF: 0 duloxetine 60 mg capsule,delayed release(DR/EC) 60 mg PO DAILY RF: 0 trazodone 100 mg tablet 100 mg PO QHS RF: 0 pravastatin 20 mg tablet 20 mg PO QHS RF: 0 Xifaxan 550 mg Tablet 550 mg PO BID 60 Days Qty: 120 RF: 0 lactulose 20 gram/30 mL Solution 20 g PO BID 30 Days Qty: 1800 RF: 0 omeprazole 40 mg Capsule,Delayed Release(Dr/Ec) 40 mg PO BIDCM 60 Days Qty: 30 RF: 0 lisinopril 40 mg DAILY RF: 0 Held Eliquis DVT-PE Treat 30D Start 5 mg (74 tabs) tablets,dose pack 5 mg PO DAILY RF: 0 Hold Instructions: Hold until told to resume by Dr. Arellano. Referrals / Follow Up: Sinan Arelalno DO [STAFF PHYSICIAN] - Within 2 Weeks (Establish appointment with Dr. Arellano for outpatient follow up and Endoscopy. ) Michael Hobson MD [Primary Care Provider] - Within 2 Weeks Disposition Disposition (needs filled in before D/C Order can be placed): Home, Self Care Charges/Coding Visit Charges Inpatient E&M: 92744 Disch Hosp
[2022-01-04 11:11] LABS: Bedside Glucose 123 mg/dL (70-110)
== END 2022-01-04 13:01 | disposition home or self-care (01) | DRG 812 ==
LOC: ED 01-03 01:00 → PCU 01-03 01:29
PROVIDERS: Physician Assistant; Admitting Provider Internal Medicine; Emergency Provider Student in an Organized Health Care Education/Training Program; PCP Internal Medicine
DX: D62 Acute posthemorrhagic anemia (principal); I85.10 Secondary esophageal varices without bleeding; K76.6 Portal hypertension; E11.9 Type 2 diabetes mellitus without complications; J44.9 Chronic obstructive pulmonary disease, unspecified; K75.81 Nonalcoholic steatohepatitis (NASH); E03.9 Hypothyroidism, unspecified; E78.5 Hyperlipidemia, unspecified; I10 Essential (primary) hypertension; F41.8 Other specified anxiety disorders; K21.9 Gastro-esophageal reflux disease without esophagitis; M19.90 Unspecified osteoarthritis, unspecified site; F41.9 Anxiety disorder, unspecified; I16.0 Hypertensive urgency; K31.89 Other diseases of stomach and duodenum; Z86.718 Personal history of other venous thrombosis and embolism; Z79.899 Other long term (current) drug therapy; F32.A Depression, unspecified; Z86.711 Personal history of pulmonary embolism; Z85.828 Personal history of other malignant neoplasm of skin; Z79.84 Long term (current) use of oral hypoglycemic drugs; Z79.01 Long term (current) use of anticoagulants; Z87.891 Personal history of nicotine dependence
CPT/HCPCS: 36415; 71045; 80048; 80053; 80076; 81001; 82140; 82274; 82728; 82962; 83540; 83550; 84484; 85025; 85027; 85045; 85610; 86850; 86900; 86901; 86920; 86922; 93005; 94640; 97802; 99284; J7040; P9016; A4216